=== PATIENT | female | born 1930 | race Caucasian/White ===

== ENCOUNTER 2016-04-15 10:48 | Inpatient (IN) | payer MEDICARE ==
[2016-04-15] MEDS ORDERED: SODIUM CHLORIDE 0.9% 1,000 ML IV STA ×2 (11:17)
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
[2016-04-15 12:23] LABS: Basophils % (A) 0 %; CH 30.4; Eosinophils # (A) 0.2 k/uL (0-0.7); Eosinophils % (A) 4 %; HCT 32.5 % (34.0-46.0); HDW 2.26; HGB 10.5 gm/dL (11.4-16.0); Luc # (Auto) 0.18; Luc % (Auto) 4; Lymphocytes # (A) 1.1 k/uL (1.0-4.8); Lymphocytes % (A) 23 %; MCH 30.8 pg (25.0-35.0); MCHC 32.3 g/dL (31.0-37.0); MCV 95.4 fL (80.0-100.0); Mean Platelet Volume 9.6; Monocytes # (A) 0.3 k/uL (0-1.0); Monocytes % (A) 5 %; Neutrophils # (A) 3.3 k/uL (1.3-7.7); Neutrophils % (A) 65 %; RBC 3.41 m/uL (3.80-5.40); RDW 14.2 % (11.5-15.5); WBC 5.1 k/uL (3.8-10.6); WBC (Perox) 5.07
[2016-04-15 12:34] LABS: Calcium 9.7 mg/dL (8.4-10.2); Phosphorous 3.8 mg/dL (2.5-4.5); Potassium 4.7 mmol/L (3.5-5.1); Total Bilirubin 0.5 mg/dL (0.2-1.3)
[2016-04-15 12:40] LABS: Prothrombin Time 10.4 sec (9.0-12.0)
--- NOTE | 2016-04-15 12:53 | XR ---
EXAMINATION TYPE: XR chest 2V DATE OF EXAM: 04/15/2016 12:34 PM COMPARISON: 01/13/2016 INDICATION: Weakness confusion TECHNIQUE: Single frontal view of the chest is obtained. FINDINGS: The heart size is normal. The pulmonary vasculature is normal. There is a 1.7 cm area of increased density and size which may some infiltrate surrounding underlying mass should be considered. Follow-up is recommended. Neoplasm is not excluded. Some left lower lobe infiltrate appears to be present. Correlate for atelectasis or pneumonia. No pneumothorax is evident. IMPRESSION: 1. Possible mass right upper lobe additional workup recommended. 2. Left lower lobe infiltrate. Correlate for atelectasis and pneumonia. 3. No acute posttraumatic change is identified.
--- NOTE | 2016-04-15 12:55 | XR ---
EXAMINATION TYPE: XR wrist complete RT DATE OF EXAM: 04/15/2016 12:34 PM COMPARISON: NONE HISTORY: Fall, pain TECHNIQUE: 4 views right wrist FINDINGS:Joint spaces preserved. Soft tissues are normal. There is some subtle irregularity at the lateral radial aspect of the distal radius. Some extension t owards the articular surface. Nondisplaced fracture is not excluded. This is best visualized on the o blique view and the navicular views. Follow-up study can be performed 7-10 days from acute trauma for continued pain. IMPRESSION: 1. Occult fracture of the lateral distal radius is not excluded. Correlate with location of the kevan ent's pain, follow up study could confirm suspected fracture.
[2016-04-15 12:56] LABS: Creatine Kinase 22 U/L (30-135)
[2016-04-15] MEDS ORDERED: LEVOFLOXACIN 750MG-D5W PMX 750 MG in DEXTROSE/WATER 1 150ML.BAG IVPB STA (12:59)
[2016-04-15] MEDS ORDERED: PNEUMONIA PROTOCOL UTILIZED 1 EACH MISC PO PRN (12:59)
[2016-04-15 13:09] LABS: Creatine Kinase MB 0.5 ng/mL (0.0-2.4); Troponin I <0.012 ng/mL (0.000-0.034)
--- NOTE | 2016-04-15 13:11 | XR ---
EXAMINATION TYPE: XR pelvis AP view DATE OF EXAM: 04/15/2016 12:34 PM COMPARISON: NONE HISTORY: Fall, pain TECHNIQUE: Single AP pelvis FINDINGS: Bilateral hip prostheses are present. No acute fractures are evident. Sacroiliac joints and symphysis pubis appear intact IMPRESSION: 1. No acute posttraumatic change AP pelvis
[2016-04-15 14:03] LABS: Appearance,Urine Clear (Clear); Bacteria,Urine Rare /hpf; Bilirubin,Urine Negative (Negative); Glucose,Urine (UA) Negative (Negative); Ketones,Urine Negative (Negative); Leukocyte Esterase,Urine Trace (Negative); Nitrite,Urine Positive (Negative); PH, Urine 6.5 (5.0-8.0); Particle Count 19897; Protein,Urine Negative (Negative); RBC,Urine <1 /hpf (0-5); Specific Gravity,Urine 1.007 (1.001-1.035); UA Billing (MACRO vs. MICRO) MICRO; Urobilinogen,Urine <2.0 mg/dL (<2.0); WBC,Urine 1 /hpf (0-5)
[2016-04-15] MEDS: SODIUM CHLORIDE 0.9% 1,000 ML IV SCH (14:11)
[2016-04-15 15:48] VITALS: BMI 30.6
[2016-04-15] MEDS: IPRATROPIUM-ALBUTEROL 3 ML NEB INHALATION SCH ×2 (16:08→19:40)
--- NOTE | 2016-04-15 17:01 | HP ---
DATE OF ADMISSION: 04/15/2016 CHIEF COMPLAINT: Fall and change in mental status as well as shaking chills. HISTORY OF PRESENT ILLNESS: This 85-year-old woman with a past medical history of COPD, GERD, DJD, history of pneumonia, history of adenoidectomy, history of breast surgery, cholecystectomy, history of orthopedic surgery, being followed by Dr. Orozco in the outpatient setting, was apparently living by herself. This morning the patient went to the bathroom and had a fall. The family checked on the patient and she was noted to have shaking chills and some change in mental status. Patient was taken to [facility]. Right upper lobe pneumonia was suspected. Patient was admitted for further evaluation and treatment. There is no history of any rigor no history of headache, loss of consciousness, seizures. Influenza is negative. PAST MEDICAL HISTORY: 1. History of COPD. 2. History of GERD. 3. History of DJD. 4. History of pneumonia. 5. History of osteoporosis. 6. History of adenoidectomy. 7. Breast surgery. 8. Cholecystectomy. Medications prior to admission include: 1. DuoNeb q.i.d. and p.r.n. 2. Albuterol HFA 1 to 2 puffs q.6 p.r.n. 3. Reglan 10 mg before meals b.i.d. 4. Clyde 7.5 p.o. t.i.d. 5. Neurontin 300 mg p.o. t.i.d. 6. Multivitamin 1 p.o. daily. 7. Singulair 10 mg p.o. b.i.d. 8. Vitamin D3 1000 daily. 9. Lioresal 10 mg p.o. t.i.d. 10. Atenolol 25 mg p.o. daily. 11. Vitamin C 500 mg p.o. daily. 12. Evista 60 mg at bedtime. 13. Prilosec 20 mg p.o. daily. ALLERGIES: NONE. FAMILY HISTORY: History of myocardial infarction. SOCIAL HISTORY: Previous history of smoking. No current smoking or alcohol intake. REVIEW OF SYSTEMS: ENT: Diminished hearing. Diminished vision. CARDIOVASCULAR SYSTEM: As mentioned earlier. RESPIRATORY SYSTEM: As mentioned earlier. GI: No nausea, vomiting. : No dysuria, retention. NERVOUS SYSTEM: No numbness, weakness. ALLERGY/IMMUNOLOGY: No asthma or hayfever. MUSCULOSKELETAL: As mentioned earlier. HEMATOLOGY/ONCOLOGY: No history of anemia. ENDOCRINE: No history of diabetes, hypothyroidism. CONSTITUTIONAL: As mentioned earlier. DERMATOLOGY: Negative. RHEUMATOLOGY: Negative. PSYCHIATRY: As mentioned earlier. PHYSICAL EXAMINATION: Patient is alert and oriented x3. Pulse is 66, blood pressure 139/72, respiration 16, temperature 96.9, pulse ox 95% on room air. HEENT: Conjunctivae normal. NECK: No jugular venous distention. CARDIOVASCULAR: S1, S2 muffled. RESPIRATORY SYSTEM: Breath sounds diminished at the bases. A few scattered rhonchi and crackles. ABDOMEN: Soft, nontender. No mass palpable. LEGS: No edema. No swelling. NERVOUS SYSTEM: Higher functions as mentioned earlier. Moves all 4 limbs. No focal motor or sensory deficit. LYMPHATICS: No lymph node palpable in neck, axilla or groin. SKIN: No ulcer, rash or bleeding. LABS: WBC 5.5, hemoglobin 10.5. Creatinine is 1.27. ASSESSMENT: 1. Right upper lobe pneumonia with possible sepsis, present on admission. 2. Change in mental status, metabolic encephalopathy secondary to sepsis. 3. Chronic obstructive pulmonary disease, acute exacerbation. 4. Mild acute renal failure, possibly secondary to dehydration. 5. Anemia, normocytic; anemia of chronic disease. 6. History of chronic obstructive pulmonary disease. 7. History of gastroesophageal reflux disease. 8. History of degenerative joint disease. 9. History of pneumonia. 10. History of peripheral neuropathy. 11. History of hiatal hernia. 12. History of frequent urinary tract infections. 13. Chronic kidney disease, stage III. 14. Multiple lung nodules previously. 15. Degenerative joint disease. 16. History of adenoidectomy. 17. Multiple lung nodules, possibly pneumonic; metastatic process unlikely per Pulmonary. 18. Chronic hypoxic respiratory failure, on home oxygen. 19. Right wrist contusion. 20. FULL CODE. RECOMMENDATIONS AND DISCUSSION: In this 85-year-old woman who presented with multiple complex medical issues, we will monitor the patient closely, continue the current medications, continue symptomatic treatment. Will initiate empiric antibiotics, follow the cultures. UA appears to be unremarkable; however, we will follow the culture. The wrist x-ray showed occult fracture of the lateral distal radius is not excluded. Also recommend an orthopedic consultation. Otherwise, guarded prognosis because of multiple complex medical issues. Further recommendations will follow. See orders for further details. Bronchodilators. DVT prophylaxis. Discussed with the family, who understands and agrees. A copy of this dictation is being forwarded to Dr. Orozco, who is the primary physician. YEE
[2016-04-15] MEDS: HYDROcodone/APAP 7.5-325MG 1 EACH TAB PO SCH ×2 (17:13→21:24)
[2016-04-15] MEDS: GABAPENTIN 300 MG CAP PO SCH ×2 (17:14→21:22)
[2016-04-15] MEDS: METOCLOPRAMIDE 10 MG TAB PO SCH (17:15)
[2016-04-15] MEDS ORDERED: IPRATROPIUM-ALBUTEROL 3 ML NEB INHALATION SCH (20:00)
--- NOTE | 2016-04-15 20:31 | CT ---
EXAMINATION TYPE: CT chest wo con DATE OF EXAM: 04/15/2016 8:11 PM COMPARISON: 01/11/2016 HISTORY: PT STATES OF SOB. R/O ANY LUNG NODULES. CT DLP: 328.3 mGycm Automated exposure control for dose reduction was used. FINDINGS: Multiple axial sections were obtained from the thoracic inlet to the diaphragm with no contrast. There is a lobulated 4 x 2 cm masslike density in the subpleural posterior right lung in the posterio r segment of the right upper lobe and adjacent to the major fissure. There is coarsening of pulmonary interstitial markings. There is some pleural thickening at the right lung base. Heart is enlarged. T horacic aorta is atheromatous. There is no evidence of aortic aneurysm. There are no hilar masses. Th ere is no mediastinal adenopathy. There is no pericardial effusion. There is osteopenia and multiple compression fractures in the thoracic spine. IMPRESSION: THERE IS A MASSLIKE DENSITY IN THE RIGHT UPPER LOBE POSTERIOR SEGMENT THAT IS INCREASED COMPARED TO L AST CT SCAN AND IS SUSPICIOUS FOR TUMOR. THERE IS SLIGHT INCREASED PLEURAL THICKENING AND SOME PLEURAL INFILTRATE AT THE RIGHT LUNG BASE LUCRETIA RED TO LAST EXAM. CARDIOMEGALY. ATHEROSCLEROTIC VASCULAR DISEASE. NUMEROUS THORACIC COMPRESSION FRACT URES WITHOUT CHANGE. SMALL HIATAL HERNIA.
[2016-04-15] MEDS ORDERED: LEVOFLOXACIN 750MG-D5W PMX 750 MG in DEXTROSE/WATER 1 150ML.BAG IVPB SCH (21:00)
[2016-04-15] MEDS: BACLOFEN 10 MG TAB PO SCH (21:21)
[2016-04-15] MEDS: RALOXIFENE 60 MG TAB PO SCH (21:21)
[2016-04-16] MEDS: SODIUM CHLORIDE 0.9% 1,000 ML IV SCH ×2 (03:05→17:23)
--- NOTE | 2016-04-16 07:32 | XR ---
EXAMINATION TYPE: XR chest 2V DATE OF EXAM: 04/16/2016 7:27 AM COMPARISON: 04/15/2016 TECHNIQUE: PA and lateral views submitted. HISTORY: Cough, pneumonia FINDINGS: There is a mass in the right upper lobe. There are compression deformities involving the thoracic spi ne which could be pathologic. Underlying COPD noted. Right-sided pleural effusion or thickening noted . No pneumothorax. Underlying interstitial fibrosis noted. IMPRESSION: 1. Right upper lobe mass
[2016-04-16] MEDS: IPRATROPIUM-ALBUTEROL 3 ML NEB INHALATION SCH ×4 (07:46→20:01)
[2016-04-16 08:13] LABS: Basophils % (A) 1 %; CH 30.5; CHCM 31.3; Eosinophils # (A) 0.2 k/uL (0-0.7); Eosinophils % (A) 3 %; HCT 33.5 % (34.0-46.0); HGB 10.4 gm/dL (11.4-16.0); Luc # (Auto) 0.18; Luc % (Auto) 3; Lymphocytes # (A) 1.2 k/uL (1.0-4.8); Lymphocytes % (A) 22 %; MCH 30.4 pg (25.0-35.0); MCHC 31.1 g/dL (31.0-37.0); MCV 97.9 fL (80.0-100.0); Mean Platelet Volume 9.9; Monocytes # (A) 0.3 k/uL (0-1.0); Monocytes % (A) 5 %; Neutrophils # (A) 3.6 k/uL (1.3-7.7); Neutrophils % (A) 66 %; RBC 3.42 m/uL (3.80-5.40); RDW 14.3 % (11.5-15.5); WBC 5.5 k/uL (3.8-10.6); WBC (Perox) 5.63
[2016-04-16 08:21] LABS: Calcium 9.1 mg/dL (8.4-10.2); Potassium 4.3 mmol/L (3.5-5.1)
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
[2016-04-16] MEDS: PANTOPRAZOLE 40 MG TABLET PO SCH (08:55)
[2016-04-16] MEDS: METOCLOPRAMIDE 10 MG TAB PO SCH ×2 (08:55→17:48)
[2016-04-16] MEDS: ENOXAPARIN 30 MG/0.3 ML SYRINGE SQ SCH (08:56)
[2016-04-16] MEDS: ATENOLOL 25 MG TAB PO SCH (08:56)
[2016-04-16] MEDS: BACLOFEN 10 MG TAB PO SCH ×2 (08:56→15:33)
[2016-04-16] MEDS: GABAPENTIN 300 MG CAP PO SCH ×3 (08:56→22:24)
[2016-04-16] MEDS: MONTELUKAST 10 MG TAB PO SCH (08:56)
[2016-04-16] MEDS: HYDROcodone/APAP 7.5-325MG 1 EACH TAB PO SCH ×3 (08:58→22:25)
[2016-04-16] MEDS ORDERED: ENOXAPARIN 40 MG/0.4 ML SYRINGE SQ SCH (09:00)
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
[2016-04-16] MEDS ORDERED: LEVOFLOXACIN 750MG-D5W PMX 750 MG in DEXTROSE/WATER 1 150ML.BAG IVPB SCH (12:00)
[2016-04-16] MEDS: CHOLECALCIFEROL 1,000 UNIT TAB PO SCH (12:25)
[2016-04-16] MEDS: ASCORBIC ACID 500 MG TAB PO SCH (12:25)
[2016-04-16] MEDS: MULTIVITAMINS, THERA 1 EACH TAB PO SCH (12:25)
--- NOTE | 2016-04-16 14:19 | XR ---
EXAMINATION TYPE: XR Hip Complete RT DATE OF EXAM: 04/16/2016 2:09 PM COMPARISON: AP pelvis 09/30/2014 HISTORY: Pain post fall TECHNIQUE: 2 views are submitted Findings: There is hip prostheses which appears to be maintained. Soft tissue ossification is noted. There is a large portion of the greater trochanter which appears separate from the prostheses. This a ppears stable from a pelvic x-ray of 2014. IMPRESSION: 1. Postoperative change with soft tissue ossification and bony displacement which is stable from the previous exam.
--- NOTE | 2016-04-16 15:55 | P.PN ---
Subjective Date of service 04/16/2016. Personal being dictated for Dr. Tang. Interval history: This is a 85-year-old female admitted with right upper lobe pneumonia, possible sepsis, acute exacerbation of COPD, mild acute renal failure secondary to dehydration, status post fall with possible right wrist fracture and multiple other medical issues. Maintained on nebulized bronchodilators, antibiotics with breathing improving. Wrist/hand x-ray reporting possible right wrist fracture; Evaluated by orthopedics with recommendations noted including a wrist brace. Chest CT reporting masslike density in the right upper lobe posterior segment increased compared to previous computed tomography scan, suspicious for tumor. Slight increased pleural thickening and pleural infiltrate at the right lung base compared to previous exam, cardiomegaly, arteriosclerotic vascular disease, numerous thoracic compression fractures without change. Chest x-ray reporting right upper lobe mass, thoracic spine compression deformities, COPD, right-sided pleural effusion, underlying interstitial fibrosis, no pneumothorax. Pulmonary consult in place with recommendations pending. Preliminary urine culture in progress, afebrile, normal WBC. Diet intake improving, no nausea, vomiting or diarrhea. Renal function improving. Denies chest pain, palpitations or increasing shortness of breath. Ambulating with walker, tolerating increase in exertion well. Review of systems: HEENT: Denies headache or focal deficits. Denies any dizziness or lightheadedness. Respiratory: Denies any increased shortness of breath. Cardiac: Denies any chest pain, palpitations. GI: Denies any nausea, vomiting, or diarrhea. Denies any abdominal tenderness. : Denies any dysuria. Psychiatry: Denies any anxiety or depression. Active Medications Acetaminophen/Hydrocodone Bitart ([place] 7.5-325) 1 each PO TID [facility] Last Admin: 04/16/16 08:58 Dose: 1 each Albuterol/Ipratropium (Duoneb 0.5 Mg-3 Mg/3 Ml Soln) 3 ml INHALATION RT-QID [facility] Last Admin: 04/16/16 11:53 Dose: 3 ml Ascorbic Acid (Vitamin C) 500 mg PO 1200 [facility] Last Admin: 04/16/16 12:25 Dose: 500 mg Atenolol (Tenormin) 25 mg PO DAILY [facility] Last Admin: 04/16/16 08:56 Dose: 25 mg Baclofen (Lioresal) 10 mg PO TID [facility] Last Admin: 04/16/16 08:56 Dose: 10 mg Cholecalciferol (Vitamin D3) 1,000 unit PO 1200 [facility] Last Admin: 04/16/16 12:25 Dose: 1,000 unit Enoxaparin Sodium (Lovenox) 30 mg SQ DAILY [facility] Last Admin: 04/16/16 08:56 Dose: 30 mg Fluticasone Propionate (Flonase Nasal [place]) 1 spray EA NOSTRIL DAILY PRN PRN Reason: Allergy Symptoms Gabapentin (Neurontin) 300 mg PO TID [facility] Last Admin: 04/16/16 08:56 Dose: 300 mg Sodium Chloride (Saline 0.9%) 1,000 mls @ 20 mls/hr IV .Q24H [facility] Last Admin: 04/16/16 03:05 Dose: 100 mls/hr Levofloxacin 750 mg/ IV (Solution) 150 mls @ 100 mls/hr IVPB Q48H [facility] Stop: 04/28/16 21:01 Metoclopramide HCl (Reglan) 10 mg PO AC-BID [facility] Last Admin: 04/16/16 08:55 Dose: 10 mg Miscellaneous Information (Pneumonia Protocol Utilized) 1 each PO ONCE PRN PRN Reason: Per Protocol Montelukast Sodium (Singulair) 10 mg PO DAILY [facility] Last Admin: 04/16/16 08:56 Dose: 10 mg Multivitamins (Theragran) 1 each PO 1200 [facility] Last Admin: 04/16/16 12:25 Dose: 1 each Pantoprazole Sodium (Protonix) 40 mg PO AC-BRKFST [facility] Last Admin: 04/16/16 08:55 Dose: 40 mg Raloxifene HCl (Evista) 60 mg PO HS [facility] Last Admin: 04/15/16 21:21 Dose: 60 mg Objective - Vital Signs Vital signs: Vital Signs Temp 97.1 F L 04/16/16 07:00 Pulse 78 04/16/16 12:01 Resp 16 04/16/16 07:00 BP 148/79 04/16/16 07:00 Pulse Ox 92 L 04/16/16 07:00 Intake & Output 04/15/16 04/16/16 04/16/16 18:59 06:59 18:59 Intake Total 800 Balance 800 Weight 77.111 kg Intake: IV 800 Sodium Chloride 0.9% 1, 800 000 ml @ 20 mls/hr IV . Q24H [facility] Rx#:[id number] Other: Voiding Method Toilet Bedside Commode Bedside Commode Bedside Commode Incontinent Incontinent Incontinent # Voids 3 3 # Bowel Movements 1 - Exam PHYSICAL EXAM: VITAL SIGNS: As above GENERAL: [Sitting up in bed, no acute distress] HEENT: [Pupils equal conjunctiva normal.] NECK: [Supple, no JVD] RESPIRATORY EFFORT:[Normal] LUNGS: [Diminished, scattered rhonchi throughout, no crackles, no wheezing] CARDIOVASCULAR[regular S1 and S2, no edema] GI: [Abdomen soft, nontender, positive bowel sounds. No guarding, no rigidity] PSYCH: [Alert and oriented -3, mood and affect normal.] NEURO: No focal deficits, moves all 4 extremities, strength and sensation grossly intact - Labs CBC & Chem 7: 04/16/16 07:39 04/16/16 07:39 Labs: Abnormal Lab Results - Last 24 Hours (Table) 04/16/16 04/16/16 Range/Units 07:39 07:39 RBC 3.42 L (3.80-5.40) m/uL Hgb 10.4 L (11.4-16.0) gm/dL Hct 33.5 L (34.0-46.0) % Chloride 110 H (98-107) mmol/L BUN 19 H (7-17) mg/dL Creatinine 1.15 H (0.52-1.04) mg/dL Microbiology - Last 24 Hours (Table) 04/15/16 13:25 Urine Culture - Preliminary Urine,Catheterized Assessment and Plan Plan: 1. [Right upper lobe pneumonia, possible sepsis present on admission]. 2. [Right upper lobe mass, suspicious for tumor, right basilar infiltrate, numerous thoracic compression fractures without change per CT. 3. [Cardiomegaly, arteriosclerotic vascular disease per CT]. 4. [Change in mental status, Acute metabolic encephalopathy secondary to sepsis] . 5. [Acute exacerbation COPD in a patient with history of COPD]. 6. [Mild acute on chronic renal failure, stage III, possibly secondary to dehydration, improving]. 7. [Anemia, normocytic,of chronic disease]. 8. Gastroesophageal reflux disease 9. Degenerative joint disease, gait dysfunction, ambulates with walker 10. History of pneumonia 11. Peripheral neuropathy 12. Hiatal hernia 13. History of frequent UTIs 14. History of Multiple lung nodules, possibly pneumonic; metastatic process unlikely per prior pulmonary evaluation. 15. Chronic hypoxic respiratory failure on home O2 16. Right wrist contusion, possible fracture Plan: Continue on current medication regime, nebulized bronchodilators, empiric antibiotics, monitoring and symptomatic treatment. Increase ambulation as tolerated. Pulmonary consult in place with recommendations pending. Previously had UTI with E. coli, preliminary urinary culture pending, follow cultures closely. Close monitoring of renal function with repeat labs ordered for a.m. Further recommendations to follow. The impression and plan of care has been dictated as directed. : I performed a H&P examination of this patient and discussed the same with the dictator. I agree with the dictator's note. Any additional findings/opinions/ etc. will be noted.
[2016-04-16] MEDS ORDERED: AMPICILLIN-SULBACTAM 3 GM in SODIUM CHLORIDE 0.9% 100 ML IVPB SCH (16:00)
--- NOTE | 2016-04-16 20:42 | PN ---
DATE OF SERVICE: 04/16/2016 This 85-year-old woman who was admitted with right upper lobe pneumonia also had some change in mental status. Seen and evaluated the patient along with the nurse practitioner. Creatinine is 1.15. Continue with antibiotics. Influenza is negative. See orders for further details. Prognosis guarded. PT and OT evaluation. Further recommendations to follow.
[2016-04-16] MEDS: LEVOFLOXACIN 750MG-D5W PMX 750 MG in DEXTROSE/WATER 1 150ML.BAG IVPB SCH (22:23)
[2016-04-16] MEDS: RALOXIFENE 60 MG TAB PO SCH (22:24)
[2016-04-17] MEDS: IPRATROPIUM-ALBUTEROL 3 ML NEB INHALATION SCH ×4 (07:34→20:31)
[2016-04-17 08:36] LABS: Basophils % (A) 0 %; CH 29.8; CHCM 31.2; Eosinophils # (A) 0.1 k/uL (0-0.7); Eosinophils % (A) 2 %; HCT 30.5 % (34.0-46.0); HDW 2.14; HGB 9.7 gm/dL (11.4-16.0); Luc # (Auto) 0.19; Luc % (Auto) 4; Lymphocytes # (A) 1.2 k/uL (1.0-4.8); Lymphocytes % (A) 24 %; MCH 30.4 pg (25.0-35.0); MCHC 31.7 g/dL (31.0-37.0); MCV 95.8 fL (80.0-100.0); Mean Platelet Volume 8.4; Monocytes # (A) 0.2 k/uL (0-1.0); Monocytes % (A) 5 %; Neutrophils # (A) 3.2 k/uL (1.3-7.7); Neutrophils % (A) 65 %; RBC 3.18 m/uL (3.80-5.40); RDW 14.2 % (11.5-15.5); WBC 4.9 k/uL (3.8-10.6); WBC (Perox) 5.34
[2016-04-17] MEDS: METOCLOPRAMIDE 10 MG TAB PO SCH ×2 (08:36→17:19)
[2016-04-17] MEDS: ATENOLOL 25 MG TAB PO SCH (08:36)
[2016-04-17] MEDS: ENOXAPARIN 30 MG/0.3 ML SYRINGE SQ SCH (08:36)
[2016-04-17] MEDS: PANTOPRAZOLE 40 MG TABLET PO SCH (08:36)
[2016-04-17] MEDS: BACLOFEN 10 MG TAB PO SCH ×3 (08:36→20:01)
[2016-04-17] MEDS: GABAPENTIN 300 MG CAP PO SCH ×3 (08:37→20:02)
[2016-04-17] MEDS: HYDROcodone/APAP 7.5-325MG 1 EACH TAB PO SCH ×3 (08:37→20:02)
[2016-04-17] MEDS: MONTELUKAST 10 MG TAB PO SCH (08:37)
[2016-04-17 08:39] LABS: Calcium 9.2 mg/dL (8.4-10.2); Potassium 4.4 mmol/L (3.5-5.1)
[2016-04-17] MEDS: FLUTICASONE 50MCG/SPRAY NASAL 16GM EA NOSTRIL PRN ×2 (09:18→20:15)
[2016-04-17] MEDS: CHOLECALCIFEROL 1,000 UNIT TAB PO SCH (12:34)
[2016-04-17] MEDS: ASCORBIC ACID 500 MG TAB PO SCH (12:34)
[2016-04-17] MEDS: MULTIVITAMINS, THERA 1 EACH TAB PO SCH (12:34)
--- NOTE | 2016-04-17 14:11 | P.PN ---
Subjective This is an 85-year-old female who has a history of left-sided breast cancer status post lumpectomy and radiation in 1995, gastroesophageal reflux disease, osteoarthritis, chronic kidney disease stage III. She also has a history of chronic obstructive pulmonary disease and is followed in our office by Dr. Baires. She has a history of smoking but quit in 2010. She presented to the emergency room with complaints of weakness and falling. She also had mental status changes. She does not have any shortness of breath. Apparently she has problems with recurrent urinary tract infections and sometimes she becomes lightheaded and will fall when she has a bladder infection. She is taking all her medications. Denies any fever chills. Denies any cough. No coughing up of blood. No wheezing. No shortness of breath. No chest pain per se. Influenza screen was negative. Urinalysis is positive nitrates. Computed tomography scan of the chest revealed a masslike density in the right upper lobe posterior segment that is increased compared to last CT in December 2015. She is seen again today 04/17/2016 in follow-up on the regular medical floor. She is sitting up in the chair at the bedside. She is awake and alert in no acute distress. She is oriented 3. She denies any worsening shortness of breath, cough or congestion. She is maintaining good O2 saturations in the mid 90s on room air. No chills or night sweats. She is afebrile. No leukocytosis. Her urine culture is positive for gram-negative bacilli. Blood culture reveals no growth to date. Objective - Vital Signs Vital signs: Vital Signs Temp 98.1 F 04/17/16 07:00 Pulse 86 04/17/16 07:54 Resp 20 04/17/16 07:00 BP 147/65 04/17/16 07:00 Pulse Ox 93 L 04/17/16 07:00 Intake & Output 04/16/16 04/17/16 04/17/16 18:59 06:59 18:59 Intake Total 850 Balance 850 Intake: IV 160 Sodium Chloride 0.9% 1, 160 000 ml @ 20 mls/hr IV . Q24H [facility] Rx#:[id number] Oral 690 Other: Voiding Method Bedside Commode Bedside Commode Bedside Commode Incontinent Incontinent Incontinent # Voids 3 2 # Bowel Movements 1 - Exam GENERAL EXAM: Alert, active, comfortable in no apparent distress. HEAD: Normocephalic. EYES: Normal reaction of pupils, equal size. NOSE: Clear with pink turbinates. THROAT: No erythema or exudates. NECK: No masses, no JVD. CHEST: No chest wall deformity. LUNGS: Equal air entry with no crackles, wheeze, rhonchi or dullness. CVS: S1 and S2 normal with no audible murmurs, regular rhythm. ABDOMEN: No hepatosplenomegaly, normal bowel sounds, no guarding or rigidity. Extremities: There is trace peripheral edema. No clubbing, no cyanosis. Peripheral pulses are intact. - Labs CBC & Chem 7: 04/17/16 07:41 04/17/16 07:41 Labs: Abnormal Lab Results - Last 24 Hours (Table) 04/17/16 04/17/16 Range/Units 07:41 07:41 RBC 3.18 L (3.80-5.40) m/uL Hgb 9.7 L (11.4-16.0) gm/dL Hct 30.5 L (34.0-46.0) % Chloride 109 H (98-107) mmol/L Creatinine 1.25 H (0.52-1.04) mg/dL Glucose 105 H (74-99) mg/dL Microbiology - Last 24 Hours (Table) 04/15/16 13:25 Urine Culture - Preliminary Urine,Catheterized Gram Neg Bacilli 04/15/16 13:51 Blood Culture - Preliminary Blood No Growth after 24 hours Assessment and Plan Plan: Impression: #1 Dizziness and falls secondary to weakness from urinary tract infection. #2 Urinary tract infection secondary to gram-negative bacilli. #3 Chronic anemia. #4 Right upper lobe pulmonary infarction or pulmonary mass versus infiltrate. This may represent a pulmonary infarction, Cerda's hump or possibly necrotizing anaerobic infection. #5 Osteoporosis. #6 History of left breast cancer with lumpectomy and radiation 1995. Plan: The patient was seen and evaluated by Dr. Pompa. She has no pulmonary complaints. We could follow-up her right upper lobe mass in the outpatient setting. In the interim, we'll continue with her bronchodilators, Singulair. She remains on antibiotics in the form of Levaquin. She is on Protonix for GI prophylaxis. Lovenox for GI prophylaxis. We will increase her activity as tolerated. We'll continue to follow make further recommendations based on her clinical status.
[2016-04-17] MEDS: SODIUM CHLORIDE 0.9% 1,000 ML IV SCH (18:10)
[2016-04-17] MEDS: RALOXIFENE 60 MG TAB PO SCH (20:01)
--- NOTE | 2016-04-17 20:46 | PN ---
DATE OF SERVICE: 04/17/2016 This 85-year-old woman who was admitted with right upper lobe pneumonia also had Gram-negative bacilli grown from the urine culture. No chest pain. No palpitation. No fever. The patient is feeling much better. On exam, alert and oriented x2. Pulse 77, blood pressure 161/68, respiration 20, temperature 98.1, pulse ox 94% on room air. HEENT: Conjunctivae normal. NECK: No jugular venous distention. CARDIOVASCULAR SYSTEM: S1, S2 muffled. RESPIRATORY: Breath sounds diminished at the bases. A few scattered rhonchi. No crackles. ABDOMEN: Soft, non-tender. LEGS: No edema. No swelling. NERVOUS SYSTEM: No focal deficit. LABS: Hemoglobin 9.7. Creatinine is 1.25. ASSESSMENT: 1. Right upper lobe pneumonia with possible sepsis, present on admission. 2. Right upper lobe mass lesion, suspicious tumor, right basilar infiltrate, numerous thoracic compression fractures without changes per CT scan. 3. Cardiomegaly, arteriosclerotic vascular disease per CT scan. 4. Change in mental status, acute metabolic encephalopathy secondary to sepsis, present on admission. 5. Chronic obstructive pulmonary disease, acute exacerbation. 6. Mild acute on chronic renal failure. 7. Chronic renal failure, stage III, possibly secondary to dehydration, improving. 8. Anemia, normocytic; anemia of chronic disease. 9. Gastroesophageal reflux disease. 10. Degenerative joint disease and gait dysfunction. 11. History of pneumonia. 12. Peripheral neuropathy. 13. Hiatal hernia. 14. History of frequent urinary tract infections. 15. History of multiple lung nodules, possible pneumonia, possible malignancy. 16. Chronic hypoxic respiratory failure, on home oxygen. 17. Right wrist contusion, possible fracture. 18. FULL CODE. RECOMMENDATIONS AND DISCUSSION: Recommend to continue current medications, continue the monitoring, continue symptomatic treatment. Otherwise, continue with the bronchodilators. Continue with antibiotics. Orthopedic recommended follow-up x-rays. Otherwise, Dr. Pompa's input noted. The prognosis is guarded because of multiple complex medical issues. Further recommendations to follow.
[2016-04-18] MEDS: SODIUM CHLORIDE 0.9% 1,000 ML IV SCH (03:10)
[2016-04-18 07:32] LABS: Aty Lym Flag Slight; CH 29.6; CHCM 30.6; HCT 27.9 % (34.0-46.0); HDW 2.08; HGB 8.7 gm/dL (11.4-16.0); Hypochromasia Slight; MCH 30.2 pg (25.0-35.0); MCHC 31.1 g/dL (31.0-37.0); MCV 97.2 fL (80.0-100.0); Mean Platelet Volume 8.8; RBC 2.87 m/uL (3.80-5.40); RDW 14.3 % (11.5-15.5); WBC 4.4 k/uL (3.8-10.6); WBC (Perox) 4.61
[2016-04-18 07:35] LABS: Calcium 8.8 mg/dL (8.4-10.2); Potassium 4.3 mmol/L (3.5-5.1)
[2016-04-18] MEDS: ATENOLOL 25 MG TAB PO SCH (07:41)
[2016-04-18] MEDS: BACLOFEN 10 MG TAB PO SCH ×3 (07:41→21:42)
[2016-04-18] MEDS: PANTOPRAZOLE 40 MG TABLET PO SCH (07:41)
[2016-04-18] MEDS: METOCLOPRAMIDE 10 MG TAB PO SCH ×2 (07:41→16:16)
[2016-04-18] MEDS: HYDROcodone/APAP 7.5-325MG 1 EACH TAB PO SCH ×3 (07:41→21:42)
[2016-04-18] MEDS: IPRATROPIUM-ALBUTEROL 3 ML NEB INHALATION SCH ×4 (07:42→19:10)
[2016-04-18] MEDS: ENOXAPARIN 30 MG/0.3 ML SYRINGE SQ SCH (07:44)
[2016-04-18] MEDS: MONTELUKAST 10 MG TAB PO SCH (07:45)
[2016-04-18] MEDS: GABAPENTIN 300 MG CAP PO SCH ×3 (07:45→21:42)
[2016-04-18 08:34] LABS: Add Differential Manual Differential
[2016-04-18 08:35] LABS: Nucleated Red Blood Cells 0 /100 WBC (0-0); Total Cells Counted 100
[2016-04-18 08:36] LABS: Manual Review Performed
[2016-04-18] MEDS: FLUTICASONE 50MCG/SPRAY NASAL 16GM EA NOSTRIL PRN (12:16)
[2016-04-18] MEDS: MULTIVITAMINS, THERA 1 EACH TAB PO SCH (12:17)
[2016-04-18] MEDS: CHOLECALCIFEROL 1,000 UNIT TAB PO SCH (12:17)
[2016-04-18] MEDS: ASCORBIC ACID 500 MG TAB PO SCH (12:17)
--- NOTE | 2016-04-18 13:03 | P.PN ---
Subjective This is an 85-year-old female who has a history of left-sided breast cancer status post lumpectomy and radiation in 1995, gastroesophageal reflux disease, osteoarthritis, chronic kidney disease stage III. She also has a history of chronic obstructive pulmonary disease and is followed in our office by Dr. Baires. She has a history of smoking but quit in 2010. She presented to the emergency room with complaints of weakness and falling. She also had mental status changes. She does not have any shortness of breath. Apparently she has problems with recurrent urinary tract infections and sometimes she becomes lightheaded and will fall when she has a bladder infection. She is taking all her medications. Denies any fever chills. Denies any cough. No coughing up of blood. No wheezing. No shortness of breath. No chest pain per se. Influenza screen was negative. Urinalysis is positive nitrates. Computed tomography scan of the chest revealed a masslike density in the right upper lobe posterior segment that is increased compared to last CT in December 2015. She is seen again today 04/17/2016 in follow-up on the regular medical floor. She is sitting up in the chair at the bedside. She is awake and alert in no acute distress. She is oriented 3. She denies any worsening shortness of breath, cough or congestion. She is maintaining good O2 saturations in the mid 90s on room air. No chills or night sweats. She is afebrile. No leukocytosis. Her urine culture is positive for gram-negative bacilli. Blood culture reveals no growth to date. The patient is seen again today 04/18/2016 in follow-up. She is awake and alert in no acute distress. She denies any worsening shortness of breath, cough or congestion. The plan is for possible discharge to an extended care facility for further inpatient rehabilitation. Objective - Vital Signs Vital signs: Vital Signs Temp 97.9 F 04/18/16 07:00 Pulse 82 04/18/16 11:45 Resp 16 04/18/16 07:52 BP 161/71 04/18/16 07:00 Pulse Ox 92 L 04/18/16 07:00 Intake & Output 04/17/16 04/18/16 04/18/16 18:59 06:59 18:59 Intake Total 400 1310 Balance 400 1310 Weight 77.111 kg 77.111 kg Intake: IV 160 Sodium Chloride 0.9% 1, 160 000 ml @ 20 mls/hr IV . Q24H REBEKA Rx#:[id number] Intake, IV Titration 80 Amount Sodium Chloride 0.9% 1, 80 000 ml @ 20 mls/hr IV . Q24H REBEKA Rx#:[id number] Oral 400 1070 Other: Voiding Method Bedside Commode Bedside Commode Bedside Commode Incontinent Incontinent Incontinent # Voids 3 1 1 # Bowel Movements 1 - Exam GENERAL EXAM: Alert, active, comfortable in no apparent distress. HEAD: Normocephalic. EYES: Normal reaction of pupils, equal size. NOSE: Clear with pink turbinates. THROAT: No erythema or exudates. NECK: No masses, no JVD. CHEST: No chest wall deformity. LUNGS: Equal air entry with no crackles, wheeze, rhonchi or dullness. CVS: S1 and S2 normal with no audible murmurs, regular rhythm. ABDOMEN: No hepatosplenomegaly, normal bowel sounds, no guarding or rigidity. Extremities: There is trace peripheral edema. No clubbing, no cyanosis. Peripheral pulses are intact. - Labs CBC & Chem 7: 04/18/16 06:46 04/18/16 06:46 Labs: Abnormal Lab Results - Last 24 Hours (Table) 04/18/16 04/18/16 Range/Units 06:46 06:46 RBC 2.87 L (3.80-5.40) m/uL Hgb 8.7 L (11.4-16.0) gm/dL Hct 27.9 L (34.0-46.0) % Plt Count 134 L (150-450) k/uL Chloride 109 H (98-107) mmol/L BUN 19 H (7-17) mg/dL Creatinine 1.32 H (0.52-1.04) mg/dL Microbiology - Last 24 Hours (Table) 04/15/16 13:25 Urine Culture - Final Urine,Catheterized Escherichia coli 04/15/16 13:51 Blood Culture - Preliminary Blood No Growth after 48 hours Assessment and Plan Plan: Impression: #1 Dizziness and falls secondary to weakness from urinary tract infection. #2 Urinary tract infection secondary to E. coli. #3 Chronic anemia. #4 Right upper lobe pulmonary infarction or pulmonary mass versus infiltrate. This may represent a pulmonary infarction, Cerda's hump or possibly necrotizing anaerobic infection. #5 Osteoporosis. #6 History of left breast cancer with lumpectomy and radiation 1995. Plan: The patient was seen and evaluated by Dr. Pompa. She has no pulmonary complaints. We will see her on as-needed basis now. We could follow-up her right upper lobe mass in the outpatient setting. In the interim, we'll continue with her bronchodilators, Singulair. She remains on antibiotics in the form of Levaquin. She is on Protonix for GI prophylaxis. Lovenox for GI prophylaxis.
--- NOTE | 2016-04-18 20:08 | PN ---
DATE OF SERVICE: 04/18/2016 This 85-year-old woman who was admitted with right upper lobe pneumonia with possible sepsis, also had E. coli growing from the urine. No chest pain. No palpitations. No fever. Patient is on IV Levaquin. PHYSICAL EXAMINATION: GENERAL: The patient is alert, oriented x3. VITAL SIGNS: Pulse 83, blood pressure 161/71, temperature 97.1, pulse ox 90 % on room air. RESPIRATORY: Breath sounds diminished at the bases. A few scattered rhonchi and crackles. ABDOMEN: Soft, nontender. EXTREMITIES: No edema. NERVOUS SYSTEM: Mild diffuse weakness. LYMPHATICS: No lymph nodes palpable in the neck, axillae, groin. LABS: WBC 4.3, hemoglobin 8.7, creatinine is 1.32. ASSESSMENT: 1. Right upper lobe pneumonia with possible sepsis, present on admission. 2. E. coli UTI. 3. Right upper lobe mass lesion suspicious with right base infiltrate. 4. Numerous thoracic compression fractures without changes in the CT scan. 5. Cardiomegaly. 6. Atherosclerotic vascular disease per CT scan. 7. Change in mental status, acute metabolic secondary to sepsis present on admission. 8. Chronic obstructive pulmonary disease acute exacerbation present on admission. 9. Mild acute on chronic renal failure, present on admission. 10. Chronic renal failure stage III, possibly secondary to dehydration, improving. 11. Anemia, normocytic, anemia of chronic disease. 12. Gastroesophageal reflux disease. 13. History of degenerative joint disease and gait dysfunction. 14. History of pneumonia. 15. History of peripheral neuropathy. 16. Hiatal hernia. 17. History of frequent urinary tract infections. 18. History of multiple lung nodules, possible pneumonia, possible malignancy. 19. Chronic hypoxic respiratory failure, on home oxygen via nasal cannula. 20. Right wrist contusion possible fracture. 21. FULL CODE. RECOMMENDATIONS: Recommend to continue with continue monitoring and symptomatic treatment. At this time I would recommend PT, OT evaluation and possible rehab. Continue the rest of the medications. Guarded prognosis because of multiple complex medical issues. Further recommendations to follow.
[2016-04-18] MEDS: LEVOFLOXACIN 750MG-D5W PMX 750 MG in DEXTROSE/WATER 1 150ML.BAG IVPB SCH (20:35)
[2016-04-18] MEDS: RALOXIFENE 60 MG TAB PO SCH (21:42)
[2016-04-19 07:24] LABS: Basophils % (A) 0 %; CH 30.1; CHCM 31.6; Eosinophils # (A) 0.2 k/uL (0-0.7); Eosinophils % (A) 3 %; HCT 28.8 % (34.0-46.0); HGB 9.1 gm/dL (11.4-16.0); Luc # (Auto) 0.22; Luc % (Auto) 4; Lymphocytes # (A) 1.5 k/uL (1.0-4.8); Lymphocytes % (A) 29 %; MCH 30.4 pg (25.0-35.0); MCHC 31.7 g/dL (31.0-37.0); MCV 95.9 fL (80.0-100.0); Mean Platelet Volume 9.3; Monocytes # (A) 0.3 k/uL (0-1.0); Monocytes % (A) 5 %; Neutrophils # (A) 3.1 k/uL (1.3-7.7); Neutrophils % (A) 58 %; RBC 3.01 m/uL (3.80-5.40); RDW 14.5 % (11.5-15.5); WBC 5.3 k/uL (3.8-10.6)
[2016-04-19 07:28] LABS: Calcium 9.2 mg/dL (8.4-10.2); Potassium 4.6 mmol/L (3.5-5.1)
[2016-04-19] MEDS: METOCLOPRAMIDE 10 MG TAB PO SCH ×2 (08:29→16:59)
[2016-04-19] MEDS: MONTELUKAST 10 MG TAB PO SCH (08:30)
[2016-04-19] MEDS: ATENOLOL 25 MG TAB PO SCH (08:30)
[2016-04-19] MEDS: PANTOPRAZOLE 40 MG TABLET PO SCH (08:30)
[2016-04-19] MEDS: BACLOFEN 10 MG TAB PO SCH ×3 (08:30→21:35)
[2016-04-19] MEDS: ENOXAPARIN 30 MG/0.3 ML SYRINGE SQ SCH (08:30)
[2016-04-19] MEDS: GABAPENTIN 300 MG CAP PO SCH ×3 (08:30→21:35)
[2016-04-19] MEDS: HYDROcodone/APAP 7.5-325MG 1 EACH TAB PO SCH ×3 (08:32→21:35)
[2016-04-19] MEDS: IPRATROPIUM-ALBUTEROL 3 ML NEB INHALATION SCH ×4 (09:18→19:36)
[2016-04-19] MEDS: ASCORBIC ACID 500 MG TAB PO SCH (12:02)
[2016-04-19] MEDS: MULTIVITAMINS, THERA 1 EACH TAB PO SCH (12:03)
[2016-04-19] MEDS: CHOLECALCIFEROL 1,000 UNIT TAB PO SCH (12:03)
[2016-04-19] MEDS: SODIUM CHLORIDE 0.9% 1,000 ML IV SCH (16:59)
[2016-04-19] MEDS: RALOXIFENE 60 MG TAB PO SCH (21:35)
[2016-04-19 21:43] VITALS: RESP 16
[2016-04-20] MEDS: BACLOFEN 10 MG TAB PO SCH (07:38)
[2016-04-20] MEDS: ENOXAPARIN 30 MG/0.3 ML SYRINGE SQ SCH (07:38)
[2016-04-20] MEDS: ATENOLOL 25 MG TAB PO SCH (07:38)
[2016-04-20] MEDS: PANTOPRAZOLE 40 MG TABLET PO SCH (07:38)
[2016-04-20] MEDS: GABAPENTIN 300 MG CAP PO SCH (07:39)
[2016-04-20] MEDS: MONTELUKAST 10 MG TAB PO SCH (07:39)
[2016-04-20] MEDS: HYDROcodone/APAP 7.5-325MG 1 EACH TAB PO SCH (07:39)
[2016-04-20] MEDS: METOCLOPRAMIDE 10 MG TAB PO SCH (07:40)
--- NOTE | 2016-04-20 07:52 | PN ---
This 85 -year-old woman was admitted with right upper lobe pneumonia with possible sepsis, present on admission is being closely monitored. No chest pain or palpitation. No fever. Possible ECF rehab is being planned at this time. On exam, alert and oriented x3. Pulse is 72, blood pressure is 177/79, respiratory rate 16, temperature 98 degrees. Pulse ox 93% on room air. HEENT: Conjunctivae normal. NECK: No jugular venous distention. CARDIOVASCULAR: S1, S2 muffled. RESPIRATORY: Breath sounds diminished at the bases. Scattered rhonchi and crackles. ABDOMEN: Soft, nontender. Legs: No edema. No swelling. CENTRAL NERVOUS SYSTEM: No focal deficits. LABS: Creatinine 1.22. ASSESSMENT: 1. Right upper lobe pneumonia with possible sepsis, present on admission. 2. Escherichia coli urinary tract infection. 3. Right upper lobe mass lesion suspicious right base infiltrate. 4. Numerous thoracic compression fracture without any changes in the recent CAT scan. 5. Cardiomegaly. 6. Atherosclerotic vascular disease per CAT scan. 7. Change in mental status, metabolic encephalopathy with sepsis, present on admission. 8. Chronic obstructive pulmonary disease, acute exacerbation present on admission. 9. Mild acute on chronic renal failure, present on admission. 10. Chronic renal failure stage III, possibly secondary to dehydration, improving. 11. Anemia, normocytic, anemia of chronic disease. 12. Gastroesophageal reflux disease. 13. History of degenerative joint disease. 14. Gait dysfunction. 15. History of pneumonia. 16. History of peripheral neuropathy. 17. Hiatal hernia. 18. History of frequent urinary tract infections. 19. History of multiple lung nodules, possible pneumonia, possible malignancy. 20. Chronic hypoxic respiratory failure, on home oxygen as well as nasal cannula. 21. Right wrist contusion possible fracture, stable. 22. FULL CODE. RECOMMENDATIONS AND DISCUSSION: In this 85 -year-old woman who presented with multiple complex medical issues, we will monitor the patient closely. Continue the current medications. Symptomatic treatment , PT/OT evaluation, possibly ECF rehab, continue the rest of the medications, continue antibiotics. prognosis guarded. Further recommendations to follow. MTDD
[2016-04-20 07:56] VITALS: BP 147/67; TEMP 98
[2016-04-20 08:27] LABS: Calcium 8.9 mg/dL (8.4-10.2); Potassium 4.7 mmol/L (3.5-5.1)
[2016-04-20 08:30] LABS: Aty Lym Flag Slight; CH 30.2; CHCM 31.4; HCT 26.2 % (34.0-46.0); HGB 8.4 gm/dL (11.4-16.0); MCH 30.9 pg (25.0-35.0); MCHC 31.9 g/dL (31.0-37.0); MCV 96.8 fL (80.0-100.0); Mean Platelet Volume 9.4; RBC 2.71 m/uL (3.80-5.40); RDW 14.6 % (11.5-15.5); WBC 4.7 k/uL (3.8-10.6); WBC (Perox) 4.78
[2016-04-20] MEDS: IPRATROPIUM-ALBUTEROL 3 ML NEB INHALATION SCH ×2 (08:40→12:35)
[2016-04-20 09:51] LABS: Add Differential Manual Differential
[2016-04-20 09:55] LABS: Manual Review Performed; Nucleated Red Blood Cells 0 /100 WBC (0-0); Total Cells Counted 100
[2016-04-20] MEDS: MULTIVITAMINS, THERA 1 EACH TAB PO SCH (11:12)
[2016-04-20] MEDS: ASCORBIC ACID 500 MG TAB PO SCH (11:12)
[2016-04-20] MEDS: CHOLECALCIFEROL 1,000 UNIT TAB PO SCH (11:12)
--- NOTE | 2016-04-20 12:15 | DS ---
DATE OF ADMISSION: 04/15/2016 DATE OF DISCHARGE: FINAL DIAGNOSES: 1. Right upper lobe pneumonia with possible sepsis, present on admission, improved. 2. Escherichia coli urinary tact infection, present on admission. 3. Right upper lobe mass lesion suspected with right basilar infiltrate. 4. Numerous thoracic compression fractures without any changes in the recent CAT scan. 5. Cardiomegaly. 6. Atherosclerotic vascular disease on CAT scan. 7. Change in mental status and metabolic encephalopathy with sepsis, present on admission. 8. Chronic obstructive pulmonary disease acute exacerbation present on admission. 9. Mild acute on chronic renal failure, present on admission. 10. Chronic renal failure stage III, possibly secondary to dehydration, improving. 11. Anemia, normocytic anemia of chronic disease. 12. Gastroesophageal reflux disease. 13. History of degenerative joint disease. 14. Gait dysfunction. 15. History of pneumonia. 16. History of peripheral neuropathy. 17. History of hiatal hernia. 18. History of frequent urinary tract infections. 19. History of multiple lung nodules, possible pneumonia, possible malignancy. 20. Chronic hypoxic respiratory failure, on home oxygen as well as nasal cannula. 21. Right wrist contusion, possible fracture, stable. 22. FULL CODE. DISCHARGE DISPOSITION: The patient will be discharged in a stable condition with guarded prognosis. Patient will be transferred to [facility]. Total time taken 35 minutes. HISTORY OF PRESENT ILLNESS: This 85-year-old woman with a past medical history of multiple medical problems, admitted with right upper lobe pneumonia as well as E. coli UTI. Patient treated with bronchodilators and antibiotics. Patient improved significantly. On exam, vitals are stable. CARDIOVASCULAR SYSTEM: S1, S2, muffled. ABDOMEN: Soft. NERVOUS SYSTEM: No focal deficits. WBC is 4.7, hemoglobin is 8.4. Creatinine stable at 1.32. So the patient will discharge in a stable condition with guarded prognosis. 1. Diet is cardiac. 2. Activity limited until followup. 3. Follow up with Dr. Orozco after discharge from [facility]. 4. Follow up with Dr. Baires and Dr. Srinivasan as advised from Orthopedic Surgery for the right wrist. Otherwise medications are: 1. Ventolin HFA 1 to 2 puffs q.6 p.r.n. 2. Vitamin C 500 mg p.o. daily. 3. Atenolol 25 mg daily. 4. Lioresal 10 mg p.o. t.i.d. 5. Vitamin D3 one thousand daily. 6. Flonase spray one spray daily p.r.n. 7. Neurontin 300 mg p.o. t.i.d. 8. [place] 7.5 t.i.d. p.r.n. 9. Albuterol Atrovent updrafts q.i.d. and p.r.n. 10. Levaquin 750 q. 0.48 hours for 5 more doses. 11. Reglan 10 mg a.c. b.i.d. 12. Singulair 10 mg p.o. daily. 13. Multivitamin 1 p.o. daily. 14. Prilosec 20 mg daily. 15. Evista 60 mg p.o. q.h.s. Once again, the patient will be discharged in a stable condition with guarded prognosis.
[2016-04-20 12:49] VITALS: PULSE 84
[2016-04-20] MEDS ORDERED: LEVOFLOXACIN 750 MG TAB PO SCH (21:00)
== END 2016-04-20 16:38 | DRG 871 ==
LOC: EC 10:48 → 4MS4W 13:00 → 5MS5E 14:47
PROVIDERS: ADMIT Hospitalist; ATTEND Hospitalist
DX: A41.9 Sepsis, unspecified organism (principal); G93.41 Metabolic encephalopathy; J18.9 Pneumonia, unspecified organism; N17.9 Acute kidney failure, unspecified; J44.0 Chronic obstructive pulmonary disease with (acute) lower respiratory infection; M48.54XA Collapsed vertebra, not elsewhere classified, thoracic region, initial encounter for fracture; J96.11 Chronic respiratory failure with hypoxia; G62.9 Polyneuropathy, unspecified; N39.0 Urinary tract infection, site not specified; J44.1 Chronic obstructive pulmonary disease with (acute) exacerbation; E86.0 Dehydration; D63.8 Anemia in other chronic diseases classified elsewhere; I25.10 Atherosclerotic heart disease of native coronary artery without angina pectoris; B96.20 Unspecified Escherichia coli [E. coli] as the cause of diseases classified elsewhere; G25.81 Restless legs syndrome; G89.29 Other chronic pain; I51.7 Cardiomegaly; K21.9 Gastro-esophageal reflux disease without esophagitis; K44.9 Diaphragmatic hernia without obstruction or gangrene; M19.90 Unspecified osteoarthritis, unspecified site; M81.0 Age-related osteoporosis without current pathological fracture; N18.3 Chronic kidney disease, stage 3 (moderate); R65.20 Severe sepsis without septic shock; S60.211A Contusion of right wrist, initial encounter; M25.531 Pain in right wrist; R26.9 Unspecified abnormalities of gait and mobility; R32 Unspecified urinary incontinence; M54.89 Other dorsalgia; M25.511 Pain in right shoulder; H91.90 Unspecified hearing loss, unspecified ear; H54.2 Low vision, both eyes; Z85.3 Personal history of malignant neoplasm of breast; Z87.01 Personal history of pneumonia (recurrent); Z87.440 Personal history of urinary (tract) infections; Z87.891 Personal history of nicotine dependence; Z99.81 Dependence on supplemental oxygen; Z79.899 Other long term (current) drug therapy; Z96.641 Presence of right artificial hip joint; Z82.49 Family history of ischemic heart disease and other diseases of the circulatory system; W19.XXXA Unspecified fall, initial encounter; Y92.002 Bathroom of unspecified non-institutional (private) residence as the place of occurrence of the external cause
CPT/HCPCS: 36415; 71020; 71250; 72170; 73502; 80048; 80053; 81001; 82550; 82553; 83735; 84100; 84443; 84484; 85025; 85610; 85730; 87040; 87077; 87086; 87186; 87502; 93005; 94640; 94760; 96361; 96365; 99285

== ENCOUNTER 2017-04-16 12:59 | Inpatient (IN) | payer MEDICARE ==
[2017-04-16] MEDS ORDERED: MORPHINE SULFATE 4 MG/ML SYRINGE IV STA (13:56)
[2017-04-16] MEDS ORDERED: SODIUM CHLORIDE 0.9% 1,000 ML IV STA (13:56)
[2017-04-16] MEDS ORDERED: ONDANSETRON 4 MG/2 ML VIAL IVP STA (13:58)
[2017-04-16 14:14] LABS: Appearance,Urine Clear (Clear); Basophils % (A) 0 %; Bilirubin,Urine Negative (Negative); Blood,Urine Negative (Negative); Color,Urine Colorless; Eosinophils # (A) 0.1 k/uL (0-0.7); Eosinophils % (A) 1 %; Glucose,Urine (UA) Negative (Negative); HGB 11.3 gm/dL (11.4-16.0); Ketones,Urine Negative (Negative); Leukocyte Esterase,Urine Negative (Negative); Lymphocytes # (A) 1.6 k/uL (1.0-4.8); Lymphocytes % (A) 32 %; MCH 31.2 pg (25.0-35.0); MCHC 32.3 g/dL (31.0-37.0); MCV 96.6 fL (80.0-100.0); Mean Platelet Volume 9.6; Monocytes # (A) 0.2 k/uL (0-1.0); Monocytes % (A) 4 %; Neutrophils % (A) 59 %; Nitrite,Urine Negative (Negative); Platelet Count 133 k/uL (150-450); Protein,Urine Negative (Negative); RBC 3.62 m/uL (3.80-5.40); RDW 13.2 % (11.5-15.5); Specific Gravity,Urine 1.006 (1.001-1.035); Urobilinogen,Urine <2.0 mg/dL (<2.0); WBC 5.1 k/uL (3.8-10.6)
[2017-04-16 14:26] LABS: Albumin 4.3 g/dL (3.5-5.0); Calcium 10.3 mg/dL (8.4-10.2); Potassium 5.1 mmol/L (3.5-5.1); Total Bilirubin 0.5 mg/dL (0.2-1.3); Total Protein 7.4 g/dL (6.3-8.2)
[2017-04-16] MEDS ORDERED: MORPHINE SULFATE 4 MG/ML SYRINGE IVP ONE (14:30)
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
--- NOTE | 2017-04-16 14:45 | XR ---
EXAMINATION TYPE: XR lumbosacral spine min 4V DATE OF EXAM: 04/16/2017 COMPARISON: 02/01/2011 HISTORY: 86 year-old female abdominal and back pain TECHNIQUE: 5 views FINDINGS: Osteopenia. Dense atherosclerotic calcifications throughout the abdominal aorta and iliac arteries. The upper abdominal aorta appears aneurysmal at 3.3 cm. Stable anterior wedging with 50% anterior height loss of the T12 vertebral body. There is mild superior endplate deformity of L1 which appears new from prior. Overall vertebral body height is maintained. Minimal anterior wedging of L3 is unchanged. Endplate deformities of L4 and L5 appear unchanged. Endplate spondylosis throughout. Grade 1 retrolisthesis L1-L2 and grade 1 anterolisthesis at L2-L3 are unchanged. Baastrup's disease. Advanced hypertrophic facet arthropathy throughout. IMPRESSION: 1. Osteoporosis limiting detailed assessment of the osseous structures. 2. Multilevel mild vertebral compression deformities, with approximately 50% anterior height loss at T12 which is largely unchanged. Mild superior endplate deformity of L1 is increased from 2010. This i s age indeterminate and can be correlated with focal pain at this level. 3. Degenerative grade 1 spondylolistheses at L1-L2 and L2-L3. 4. 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 5. 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
--- NOTE | 2017-04-16 14:57 | XR ---
Abdomen HISTORY: Abdomen pain, back pain, history of urinary tract infection Frontal view of the abdomen on 2 images Correlated to prior exam AP pelvis 04/15/2016, abdomen 02/01/2011 Bilateral hip arthroplasties are again noted, heterotopic new bone formation present especially on th e right. Bone mineralization is reduced. There are vascular calcifications within the pelvis. No evid ent bowel obstruction or pneumoperitoneum. Degenerative disc changes are noted in the visualized spin e, compression deformities suspected at multiple levels. Vertebral plasty noted in the thoracic verte bral body. Surgical clips present in the right upper quadrant. Lung bases are clear. Prominent lung v olumes may be indicative of underlying COPD. IMPRESSION: Nonobstructive bowel gas pattern. Osteopenia, multilevel osteoporotic compression fractur es.
[2017-04-16] MEDS ORDERED: MORPHINE SULFATE 4 MG/ML SYRINGE IV PRN (15:37)
[2017-04-16] MEDS ORDERED: NALOXONE 0.4 MG/ML 1 ML VIAL IV PRN (15:37)
[2017-04-16] MEDS ORDERED: ALBUTEROL NEBULIZED 2.5 MG/3 ML INHALATION PRN (15:41)
[2017-04-16] MEDS: IPRATROPIUM-ALBUTEROL 3 ML NEB INHALATION SCH ×2 (16:11→20:41)
[2017-04-16] MEDS: BACLOFEN 10 MG TAB PO SCH ×3 (17:00→23:34)
[2017-04-16] MEDS: HYDROcodone/APAP 7.5-325MG 1 EACH TAB PO SCH ×2 (17:01→23:35)
[2017-04-16 17:50] VITALS: BMI 31.6
[2017-04-16] MEDS: GABAPENTIN 300 MG CAP PO SCH ×2 (18:32→23:34)
[2017-04-16] MEDS: PANTOPRAZOLE 40 MG TABLET PO SCH (18:32)
[2017-04-16] MEDS: METOCLOPRAMIDE 10 MG TAB PO SCH ×2 (18:33→23:34)
[2017-04-16] MEDS: SYMBICORT 160-4.5 MCG INHALER INHALATION SCH (20:42)
[2017-04-16] MEDS: ACETAMINOPHEN TAB 500 MG TAB PO SCH (20:46)
[2017-04-16] MEDS: diphenhydrAMINE 25 MG CAP PO SCH (20:46)
[2017-04-16] MEDS ORDERED: NON-FORMULARY DRUG (Acetaminophen/Diphenhydramine [Tylenol Pm 500-25mg] 1 TAB) PO SCH (21:00)
[2017-04-16] MEDS: RALOXIFENE 60 MG TAB PO SCH (22:27)
[2017-04-17] MEDS: SYMBICORT 160-4.5 MCG INHALER INHALATION SCH ×2 (07:11→19:00)
[2017-04-17] MEDS: IPRATROPIUM-ALBUTEROL 3 ML NEB INHALATION SCH ×4 (07:11→19:00)
[2017-04-17] MEDS: HYDROcodone/APAP 7.5-325MG 1 EACH TAB PO SCH ×3 (08:52→21:23)
[2017-04-17] MEDS: ATENOLOL 50 MG TAB PO SCH (08:55)
[2017-04-17] MEDS: FUROSEMIDE 20 MG TAB PO SCH (08:55)
[2017-04-17] MEDS: DOCUSATE 100 MG CAP PO SCH (08:55)
[2017-04-17] MEDS: MONTELUKAST 10 MG TAB PO SCH (08:55)
[2017-04-17] MEDS: METOCLOPRAMIDE 10 MG TAB PO SCH ×3 (08:55→21:22)
[2017-04-17] MEDS: GABAPENTIN 300 MG CAP PO SCH ×3 (08:55→21:22)
[2017-04-17] MEDS: ASPIRIN 81 MG PO SCH (08:55)
[2017-04-17] MEDS: PANTOPRAZOLE 40 MG TABLET PO SCH ×2 (08:55→18:15)
[2017-04-17] MEDS: BACLOFEN 10 MG TAB PO SCH ×3 (08:56→21:23)
[2017-04-17] MEDS ORDERED: NON-FORMULARY DRUG (Tiotropium Bromide [Spiriva] 1 CAP) INHALATION SCH (09:00)
[2017-04-17] MEDS: ASCORBIC ACID 500 MG TAB PO SCH (12:28)
[2017-04-17] MEDS: MULTIVITAMINS, THERA 1 EACH TAB PO SCH (12:28)
[2017-04-17] MEDS: CHOLECALCIFEROL 1,000 UNIT TAB PO SCH (12:28)
[2017-04-17] MEDS: CALCIUM CARBONATE 500 MG CHEWABLE PO SCH (12:28)
[2017-04-17] MEDS ORDERED: MORPHINE ORAL SOLN 10 MG/5 ML CUP PO PRN (14:35)
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
[2017-04-17] MEDS: ACETAMINOPHEN TAB 500 MG TAB PO SCH (21:21)
[2017-04-17] MEDS: RALOXIFENE 60 MG TAB PO SCH (21:22)
[2017-04-17] MEDS: diphenhydrAMINE 25 MG CAP PO SCH (21:23)
[2017-04-17] MEDS: HEPARIN SODIUM,PORCINE 5,000 UNIT/ML 1 ML VIAL SQ SCH (21:28)
[2017-04-18] MEDS: HYDROcodone/APAP 7.5-325MG 1 EACH TAB PO SCH ×5 (02:46→23:22)
[2017-04-18] MEDS ORDERED: FUROSEMIDE 10 MG/ML 4 ML VIAL IV STA (06:41)
[2017-04-18 06:45] LABS: Glucose,Whole Blood 110 mg/dL (75-99)
--- NOTE | 2017-04-18 06:58 | XR ---
EXAM: XR Chest, 1 View CLINICAL HISTORY: ITS.REASON XR Reason: shortness of breath TECHNIQUE: Frontal view of the chest. COMPARISON: Chest x-ray dated 04/16/2016. FINDINGS: Lungs: Reidentified 3.7 cm mass in the right midlung. Mild presumed atelectasis in the left lung base. Bilateral prominent perihilar and interstitial opacities suggestive of edema. Pleural space: Unremarkable. No pneumothorax. Heart: Mild cardiomegaly. Mediastinum: Unremarkable. Bones/joints: Moderate degenerative changes of both shoulder joints. Soft tissues: Unremarkable. Vasculature: Calcification of the aortic arch. IMPRESSION: Reidentified approximately 3.7 cm mass in the right midlung that is otherwise not well-characterized by x-ray. Accurate comparison with the prior x-rays difficult. Cardiomegaly and possible mild pulmonary congestion.
[2017-04-18 07:00] LABS: ABG Base Excess -9.4 mmol/L; ABG HCO3 17 mmol/L (21-25); ABG Oxygen Saturation 94.3 % (94-97); ABG PCO2 36 mmHg (35-45); ABG PH 7.29 (7.35-7.45); ABG PO2 78 mmHg (83-108); ABG TCO2 18 mmol/L (19-24)
[2017-04-18 07:06] LABS: Basophils % (A) 0 %; Eosinophils # (A) 0.1 k/uL (0-0.7); Eosinophils % (A) 2 %; HCT 35.4 % (34.0-46.0); Hypochromasia Slight; Lymphocytes # (A) 1.5 k/uL (1.0-4.8); Lymphocytes % (A) 33 %; MCH 30.9 pg (25.0-35.0); MCHC 31.1 g/dL (31.0-37.0); MCV 99.3 fL (80.0-100.0); Mean Platelet Volume 8.3; Monocytes # (A) 0.2 k/uL (0-1.0); Monocytes % (A) 4 %; Neutrophils # (A) 2.7 k/uL (1.3-7.7); Neutrophils % (A) 58 %; Platelet Count 129 k/uL (150-450); RBC 3.57 m/uL (3.80-5.40); RDW 13.2 % (11.5-15.5); WBC 4.7 k/uL (3.8-10.6)
[2017-04-18 07:19] LABS: Albumin 3.6 g/dL (3.5-5.0); Calcium 9.1 mg/dL (8.4-10.2); Magnesium 1.9 mg/dL (1.6-2.3); Phosphorus 3.5 mg/dL (2.5-4.5); Potassium 4.2 mmol/L (3.5-5.1); Total Bilirubin 0.3 mg/dL (0.2-1.3); Total Protein 6.4 g/dL (6.3-8.2)
[2017-04-18] MEDS: IPRATROPIUM-ALBUTEROL 3 ML NEB INHALATION SCH ×4 (07:29→19:12)
[2017-04-18] MEDS: SYMBICORT 160-4.5 MCG INHALER INHALATION SCH ×2 (07:30→19:12)
[2017-04-18] MEDS: ATENOLOL 50 MG TAB PO SCH (07:33)
[2017-04-18] MEDS: METOCLOPRAMIDE 10 MG TAB PO SCH ×3 (07:33→20:37)
[2017-04-18] MEDS: DOCUSATE 100 MG CAP PO SCH (07:33)
[2017-04-18] MEDS: PANTOPRAZOLE 40 MG TABLET PO SCH ×2 (07:33→16:42)
[2017-04-18] MEDS: ASPIRIN 81 MG PO SCH (07:33)
[2017-04-18] MEDS: MONTELUKAST 10 MG TAB PO SCH (07:33)
[2017-04-18] MEDS: GABAPENTIN 300 MG CAP PO SCH ×4 (07:33→23:22)
[2017-04-18] MEDS: FUROSEMIDE 20 MG TAB PO SCH (07:33)
[2017-04-18] MEDS: HEPARIN SODIUM,PORCINE 5,000 UNIT/ML 1 ML VIAL SQ SCH ×2 (07:36→22:25)
[2017-04-18] MEDS: BACLOFEN 10 MG TAB PO SCH ×4 (07:36→23:22)
[2017-04-18] MEDS ORDERED: RX INFO: IV CONTRAST WAS GIVEN 1 EACH MISC MISCELLANE PRN (09:28)
--- NOTE | 2017-04-18 11:00 | CT ---
EXAMINATION TYPE: CT angio chest DATE OF EXAM: 04/18/2017 10:24 AM COMPARISON: Previous study dated 04/15/2016. HISTORY: SOB, history of breast CA CT DLP: 388.3 mGycm Automated exposure control for dose reduction was used. CONTRAST: CTA scan of the thorax is performed with IV Contrast, patient injected with 61 mL of Visipaque 320, p ulmonary embolism protocol. . FINDINGS: Masslike density in the posterior segment of the right upper lobe previously measured 3.1 x 2.7 cm. Today it measures 3.6 x 2.5 cm. This abuts the major fissure on the right. There are underlying changes of COPD. There are small, bilateral effusions. There is no evidence of pulmonary embolus. The aorta is normal in caliber without evidence of dissect ion. The heart is mildly enlarged. Visualized portions of the upper abdomen are unremarkable. There is extensive osteopenia throughout the spine, likely on the basis of osteoporosis. There has be en a previous kyphoplasty in one of the lower dorsal vertebra. IMPRESSION: #1 THIS EXAMINATION IS NEGATIVE FOR PULMONARY EMBOLISM. 2. ENLARGING MASS IN THE POSTERIOR SEGMENT OF THE RIGHT UPPER LOBE. 3. EMPHYSEMATOUS CHANGE. 4. POSTSURGICAL CHANGE.
[2017-04-18] MEDS: CALCIUM CARBONATE 500 MG CHEWABLE PO SCH (13:48)
[2017-04-18] MEDS: MULTIVITAMINS, THERA 1 EACH TAB PO SCH (13:50)
[2017-04-18] MEDS: CHOLECALCIFEROL 1,000 UNIT TAB PO SCH (13:50)
[2017-04-18] MEDS: ASCORBIC ACID 500 MG TAB PO SCH (13:51)
[2017-04-18] MEDS: ACETAMINOPHEN TAB 500 MG TAB PO SCH (16:42)
[2017-04-18] MEDS: RALOXIFENE 60 MG TAB PO SCH (20:36)
[2017-04-18] MEDS: diphenhydrAMINE 25 MG CAP PO SCH (20:36)
[2017-04-18 21:59] LABS: Glucose,Whole Blood 110 mg/dL (75-99)
[2017-04-18] MEDS ORDERED: FUROSEMIDE 10 MG/ML 4 ML VIAL IV PRN (22:50)
--- NOTE | 2017-04-18 23:25 | P.PN ---
Subjective Progress Note Date: 04/17/17 Principal diagnosis: Acute back pain Patient is a 86-year-old female with a known history of lumbar spinal compression fractures, osteoarthritis of multiple joints, COPD and history of breast cancer on hormonal therapy, lung nodule being followed in the clinic came to ER with complaints of worsening back pain for the past few weeks. Pain got worse during last 1 week.. Mainly in the lower back pain radiates from the right lower back to the right leg. Denied any bladder or bowel dysfunction. She does have ongoing urinary incontinence. No numbness or tingling otherwise down the leg. No fever no chills no recent injury or fall as per the patient. He does take [place] 7.5 at home. Patient does have constipation as well and has not moved bowels for the past for 5 days. No fever no chills. No chest pain or short of breath. No nausea vomiting or diarrhea. Denied any recent illnesses. No recent travel or sick contacts. KUB x-ray showed nonobstructive bowel gas pattern. Osteoporosis with multiple level compression fractures. CT lumbar spine showed multilevel mid vertebral compression deformities compression deformities at T12 and L1. L1 endplate deformity increased in size compared to previous. BUN 52 creatinine 1.7 04/17/2017 Patient's back pain improved today. Patient is able to sit in a chair. PT OT was consulted and possible transfer to rehab. Otherwise no complaints of chest pain or shortness of breath. No nausea vomiting or abdominal pain. Patient did have bowel movement. No other acute overnight issues. All other review of systems negative except the above. current medications reviewed Objective - Vital Signs Vital signs: Vital Signs Temp 98.3 F 04/17/17 15:00 Pulse 84 04/17/17 19:11 Resp 16 04/17/17 16:06 BP 111/70 04/17/17 15:00 Pulse Ox 91 L 04/17/17 15:00 Intake & Output 04/17/17 04/17/17 04/18/17 06:59 18:59 06:59 Intake Total 1250 950 Balance 1250 950 Intake: Intake, IV Titration 1100 800 Amount Sodium Chloride 0.9% 1, 1100 800 000 ml @ 100 mls/hr IV . Q10H STA Rx#:[id number] Oral 150 150 Other: Voiding Method Bedpan Bedpan Diaper Diaper # Voids 1 2 - Exam Patient is lying in the bed comfortably, no distress, awake alert and oriented.. HEENT: Normocephalic. Neck is supple. Pupils reactive. Nostrils clear. Oral cavity is moist. Ears reveal no drainage. Neck reveals no JVD, carotid bruits, or thyromegaly. CHEST EXAMINATION: Trachea is central. Symmetrical expansion. Lung grigsby clear to auscultation and percussion. CARDIAC: Normal S1, S2 with no gallops. Positive systolic murmur ABDOMEN: Soft. Bowel sounds normal. No organomegaly. No abdominal bruits. Extremities: reveal no edema. No clubbing or cyanosis Neurologically awake, alert, oriented x3 with well-coordinated movements. No focal deficits noted Skin: No rash or skin lesions. Psychiatric: Cooperative. Nonsuicidal Musculoskeletal: No joint swelling or deformity. Normal range of motion. Patient does have tenderness over the T12 and L1 vertebra. - Labs CBC & Chem 7: 04/18/17 06:50 04/18/17 06:50 Assessment and Plan Assessment: Acute on chronic lower back pain due to compression fractures at T12 and L1 History of compression fracture Acute on chronic kidney disease stage III creatinine 1.7 Are sure that it is of multiple joints extended GERD COPD stable History of breast cancer currently on hormonal therapy and lump resection previously Lung nodule being followed as an outpatient DVT prophylaxis Plan: Patient will be continued on pain medications in the form of Morphine IV, [place] 7.5 and gabapentin. Continue the home medications and follow closely. Gentle hydration. Encourage ambulation. We'll consult PTOT. Possible subacute rehab transfer upon discharge.
--- NOTE | 2017-04-18 23:29 | P.PN ---
Subjective Progress Note Date: 04/18/17 Principal diagnosis: Acute back pain Patient is a 86-year-old female with a known history of lumbar spinal compression fractures, osteoarthritis of multiple joints, COPD and history of breast cancer on hormonal therapy, lung nodule being followed in the clinic came to ER with complaints of worsening back pain for the past few weeks. Pain got worse during last 1 week.. Mainly in the lower back pain radiates from the right lower back to the right leg. Denied any bladder or bowel dysfunction. She does have ongoing urinary incontinence. No numbness or tingling otherwise down the leg. No fever no chills no recent injury or fall as per the patient. He does take [place] 7.5 at home. Patient does have constipation as well and has not moved bowels for the past for 5 days. No fever no chills. No chest pain or short of breath. No nausea vomiting or diarrhea. Denied any recent illnesses. No recent travel or sick contacts. KUB x-ray showed nonobstructive bowel gas pattern. Osteoporosis with multiple level compression fractures. CT lumbar spine showed multilevel mid vertebral compression deformities compression deformities at T12 and L1. L1 endplate deformity increased in size compared to previous. BUN 52 creatinine 1.7 04/17/2017 Patient's back pain improved today. Patient is able to sit in a chair. PT OT was consulted and possible transfer to rehab. Otherwise no complaints of chest pain or shortness of breath. No nausea vomiting or abdominal pain. Patient did have bowel movement. No other acute overnight issues. 04/18/2017 Patient did have acute respiratory distress this morning and was placed on BiPAP briefly. Patient was given a dose of IV Lasix. Currently patient is on nasal cannula. Chest x-ray showed mild pulmonary vascular congestion and 3.7 cm right mid lung mass is redemonstrated. Patient was found to have elevated d-dimer and CT angiogram is negative for any PE. Patient is also having altered mental status in the morning which has been improved now and is at baseline. Active Medications Generic Name Dose Route Start Last Admin Trade Name Freq PRN Reason Stop Dose Admin Acetaminophen 500 mg 04/16/17 21:00 04/18/17 16:42 Tylenol Tab PO 500 mg HS REBEKA Administration Hydrocodone Bitart/Acetaminophen 1 each 04/16/17 16:00 04/18/17 23:22 Floyd 7.5-325 PO 0.5 each TID REBEKA Administration Albuterol Sulfate 2.5 mg 04/16/17 15:41 Ventolin Nebulized INHALATION RT-Q6H PRN Shortness Of Breath Albuterol/Ipratropium 3 ml 04/16/17 16:00 04/18/17 19:12 Duoneb 0.5 Mg-3 Mg/3 Ml Soln INHALATION 3 ml RT-QID REBEKA Administration Ascorbic Acid 500 mg 04/17/17 12:00 04/18/17 13:51 Vitamin C PO 500 mg 1200 REBEKA Administration Aspirin 81 mg 04/17/17 09:00 04/18/17 07:33 Aspirin PO 81 mg DAILY REBEKA Administration Atenolol 50 mg 04/17/17 09:00 04/18/17 07:33 Tenormin PO 50 mg DAILY REBEKA Administration Baclofen 10 mg 04/16/17 16:00 04/18/17 23:22 Lioresal PO 10 mg TID [facility] Administration Budesonide/Formoterol Fumarate 2 puff 04/16/17 20:00 04/18/17 19:12 Symbicort 160-4.5 Mcg Inhaler INHALATION 2 puff RT-BID [facility] Administration Calcium Carbonate/Glycine 500 mg 04/17/17 12:00 04/18/17 13:48 Tums PO 500 mg 1200 [facility] Administration Cholecalciferol 1,000 unit 04/17/17 12:00 04/18/17 13:50 Vitamin D3 PO 1,000 unit 1200 [facility] Administration Diphenhydramine HCl 25 mg 04/16/17 21:00 04/18/17 20:36 Benadryl PO Not Given [facility] Docusate Sodium 100 mg 04/17/17 09:00 04/18/17 07:33 Colace PO 100 mg DAILY [facility] Administration Furosemide 20 mg 04/17/17 09:00 04/18/17 07:33 Lasix PO 20 mg DAILY [facility] Administration Gabapentin 300 mg 04/16/17 16:00 04/18/17 23:22 Neurontin PO 300 mg TID [facility] Administration Heparin Sodium (Porcine) 5,000 unit 04/17/17 21:00 04/18/17 22:25 Heparin SQ 5,000 unit Q12HR [facility] Administration Insulin Aspart 0 unit 04/19/17 07:30 Novolog SQ ACHS [facility] Protocol Methylprednisolone Sodium Succinate 40 mg 04/19/17 00:00 Solu-Medrol IV Q6HR REBEKA Metoclopramide HCl 10 mg 04/16/17 16:00 04/18/17 20:37 Reglan PO Not Given TID REBEKA Miscellaneous Information 1 each 04/18/17 09:28 Rx Info: Iv Contrast Was Given MISCELLANE 04/20/17 09:29 DAILY PRN Per Protocol Montelukast Sodium 10 mg 04/17/17 09:00 04/18/17 07:33 Singulair PO 10 mg DAILY REBEKA Administration Morphine Sulfate 12 mg 04/17/17 14:35 Morphine Oral Chari 2mg/Ml PO Q4HR PRN Severe Pain Multivitamins 1 each 04/17/17 12:00 04/18/17 13:50 Theragran PO 1 each 1200 REBEKA Administration Naloxone HCl 0.2 mg 04/16/17 15:37 Narcan IV Q2M PRN Opioid Reversal Pantoprazole Sodium 40 mg 04/16/17 17:30 04/18/17 16:42 Protonix PO 40 mg AC-BID REBEKA Administration Raloxifene HCl 60 mg 04/16/17 21:00 04/18/17 20:36 Evista PO Not Given HS REBEKA All other review of systems negative except the above. current medications reviewed Objective - Vital Signs Vital signs: Vital Signs Temp 98.1 F 04/18/17 15:00 Pulse 88 04/18/17 19:24 Resp 18 04/18/17 16:00 BP 151/67 04/18/17 15:00 Pulse Ox 97 04/18/17 15:00 Intake & Output 04/18/17 04/18/17 04/19/17 06:59 18:59 06:59 Intake Total 380 150 Balance 380 150 Weight 81 kg Intake: Oral 380 150 Other: Voiding Method Bedpan Bedpan Diaper Diaper # Voids 3 3 - Exam Patient is lying in the bed comfortably, no distress, awake alert and oriented.. HEENT: Normocephalic. Neck is supple. Pupils reactive. Nostrils clear. Oral cavity is moist. Ears reveal no drainage. Neck reveals no JVD, carotid bruits, or thyromegaly. CHEST EXAMINATION: Trachea is central. Symmetrical expansion. Lung grigsby clear to auscultation and percussion. Minimal crackles at right base CARDIAC: Normal S1, S2 with no gallops. Positive systolic murmur ABDOMEN: Soft. Bowel sounds normal. No organomegaly. No abdominal bruits. Extremities: reveal no edema. No clubbing or cyanosis Neurologically awake, alert, oriented x3 with well-coordinated movements. No focal deficits noted Skin: No rash or skin lesions. Psychiatric: Cooperative. Nonsuicidal Musculoskeletal: No joint swelling or deformity. Normal range of motion. Patient does have tenderness over the T12 and L1 vertebra. - Labs CBC & Chem 7: 04/18/17 06:50 04/18/17 06:50 Labs: Abnormal Lab Results - Last 24 Hours (Table) 04/18/17 04/18/17 04/18/17 Range/Units 06:33 06:50 06:50 RBC 3.57 L (3.80-5.40) m/uL Hgb 11.0 L (11.4-16.0) gm/dL Plt Count 129 L (150-450) k/uL D-Dimer (<0.60) mg/L FEU ABG pH (7.35-7.45) ABG pO2 (83-108) mmHg ABG HCO3 (21-25) mmol/L ABG Total CO2 (19-24) mmol/L Sodium 146 H (137-145) mmol/L Chloride 117 H (98-107) mmol/L Carbon Dioxide 16 L (22-30) mmol/L BUN 36 H (7-17) mg/dL Creatinine 1.34 H (0.52-1.04) mg/dL Glucose 115 H (74-99) mg/dL POC Glucose (mg/dL) 110 H (75-99) mg/dL 04/18/17 04/18/17 Range/Units 06:50 06:51 RBC (3.80-5.40) m/uL Hgb (11.4-16.0) gm/dL Plt Count (150-450) k/uL D-Dimer 2.07 H (<0.60) mg/L FEU ABG pH 7.29 L (7.35-7.45) ABG pO2 78 L (83-108) mmHg ABG HCO3 17 L (21-25) mmol/L ABG Total CO2 18 L (19-24) mmol/L Sodium (137-145) mmol/L Chloride (98-107) mmol/L Carbon Dioxide (22-30) mmol/L BUN (7-17) mg/dL Creatinine (0.52-1.04) mg/dL Glucose (74-99) mg/dL POC Glucose (mg/dL) (75-99) mg/dL Assessment and Plan Assessment: Acute on chronic lower back pain due to compression fractures at T12 and L1 Acute hypoxic respiratory failure likely due to vascular congestion and pain medication use. Status post BiPAP. Currently on nasal cannula History of compression fracture Acute on chronic kidney disease stage III creatinine 1.7 Are sure that it is of multiple joints extended GERD COPD stable History of breast cancer currently on hormonal therapy and lump resection previously Lung nodule being followed as an outpatient DVT prophylaxis Plan: Patient will be continued on pain medications in the form of Morphine IV, [place] 7.5 and gabapentin. Continue the home medications and follow closely. Gentle hydration. Encourage ambulation. We'll consult PTOT. Possible subacute rehab transfer upon discharge. Time with Patient: Greater than 30
[2017-04-18] MEDS: methylPREDNISolone SOD SUCCI 40 MG/ML 1 ML VIAL IV SCH (23:30)
[2017-04-19 05:19] LABS: Appearance,Urine Cloudy (Clear); Bilirubin,Urine Negative (Negative); Blood,Urine Negative (Negative); Color,Urine Yellow; Glucose,Urine (UA) Negative (Negative); Ketones,Urine 1+ (Negative); Leukocyte Esterase,Urine Large (Negative); Mucus,Urine Rare /hpf; Nitrite,Urine Negative (Negative); Protein,Urine 1+ (Negative); RBC,Urine 11 /hpf (0-5); Specific Gravity,Urine 1.021 (1.001-1.035); Squamous Epithelial Cell,Urine 1 /hpf (0-4); Urobilinogen,Urine <2.0 mg/dL (<2.0); WBC,Urine 36 /hpf (0-5)
[2017-04-19] MEDS: methylPREDNISolone SOD SUCCI 40 MG/ML 1 ML VIAL IV SCH ×4 (05:37→23:40)
[2017-04-19 07:10] LABS: Glucose,Whole Blood 125 mg/dL (75-99)
[2017-04-19 07:47] LABS: Albumin 3.8 g/dL (3.5-5.0); Calcium 9.4 mg/dL (8.4-10.2); Total Bilirubin 0.6 mg/dL (0.2-1.3); Total Protein 6.8 g/dL (6.3-8.2)
[2017-04-19 08:00] LABS: Potassium 4.8 mmol/L (3.5-5.1)
[2017-04-19] MEDS: IPRATROPIUM-ALBUTEROL 3 ML NEB INHALATION SCH ×4 (08:07→20:01)
[2017-04-19] MEDS: SYMBICORT 160-4.5 MCG INHALER INHALATION SCH ×2 (08:07→20:07)
[2017-04-19] MEDS: INSULIN ASPART 100 UNIT/ML 1 ML 10 ML VIAL SQ SCH ×4 (08:40→21:40)
[2017-04-19] MEDS: BACLOFEN 10 MG TAB PO SCH ×3 (09:01→21:40)
[2017-04-19] MEDS: FUROSEMIDE 20 MG TAB PO SCH (09:01)
[2017-04-19] MEDS: PANTOPRAZOLE 40 MG TABLET PO SCH ×2 (09:02→17:46)
[2017-04-19] MEDS: ASPIRIN 81 MG PO SCH (09:02)
[2017-04-19] MEDS: DOCUSATE 100 MG CAP PO SCH (09:02)
[2017-04-19] MEDS: ATENOLOL 50 MG TAB PO SCH (09:02)
[2017-04-19] MEDS: METOCLOPRAMIDE 10 MG TAB PO SCH ×3 (09:03→21:40)
[2017-04-19] MEDS: HEPARIN SODIUM,PORCINE 5,000 UNIT/ML 1 ML VIAL SQ SCH ×2 (09:03→21:55)
[2017-04-19] MEDS: MONTELUKAST 10 MG TAB PO SCH (09:03)
[2017-04-19] MEDS: GABAPENTIN 300 MG CAP PO SCH ×3 (09:03→21:40)
[2017-04-19] MEDS: HYDROcodone/APAP 7.5-325MG 1 EACH TAB PO SCH ×3 (10:29→21:40)
[2017-04-19] MEDS ORDERED: IOHEXOL 350 MG/ML 25 ML BOTTLE (ORAL USE) PO PRN (11:09)
[2017-04-19 11:31] LABS: Basophils % (A) 1 %; Eosinophils % (A) 1 %; HCT 38.9 % (34.0-46.0); HGB 11.9 gm/dL (11.4-16.0); Hypochromasia Marked; Lymphocytes # (A) 0.5 k/uL (1.0-4.8); Lymphocytes % (A) 14 %; MCH 31.4 pg (25.0-35.0); MCHC 30.6 g/dL (31.0-37.0); MCV 102.8 fL (80.0-100.0); Macrocytosis Slight; Mean Platelet Volume 10.2; Monocytes % (A) 1 %; Neutrophils # (A) 2.6 k/uL (1.3-7.7); Neutrophils % (A) 81 %; Platelet Count 128 k/uL (150-450); RBC 3.79 m/uL (3.80-5.40); RDW 13.2 % (11.5-15.5); WBC 3.2 k/uL (3.8-10.6)
[2017-04-19] MEDS: cefTRIAXone IN SWFI 1,000 MG/10 ML SYRINGE IVP SCH (11:51)
[2017-04-19 11:58] LABS: Glucose,Whole Blood 114 mg/dL (75-99)
[2017-04-19] MEDS: HYDROmorphone 0.5 MG/0.5 ML SYRINGE IVP PRN ×3 (12:08→21:31)
[2017-04-19] MEDS: CALCIUM CARBONATE 500 MG CHEWABLE PO SCH (12:28)
[2017-04-19] MEDS: ASCORBIC ACID 500 MG TAB PO SCH (12:28)
[2017-04-19] MEDS: MULTIVITAMINS, THERA 1 EACH TAB PO SCH (12:28)
[2017-04-19] MEDS: CHOLECALCIFEROL 1,000 UNIT TAB PO SCH (12:28)
--- NOTE | 2017-04-19 13:42 | CT ---
EXAMINATION TYPE: CT abdomen pelvis wo con DATE OF EXAM: 04/19/2017 HISTORY: Severe back pain CT DLP: 1017.8 mGycm. Automated Exposure Control for Dose Reduction was Utilized. TECHNIQUE: CT scan of the abdomen and pelvis is performed without oral or IV contrast. COMPARISON: CTA aorta February 01, 2011. FINDINGS: Within the limitations of a non-contrast study, the following observations are made. LUNG BASES: Cardiomegaly is present. There is dependent atelectasis in both bases, right worse than l eft. There is 5 mm calcified nodule medial posterior left lung base redemonstrated axial image 13. LIVER/GB: Cholecystectomy clips are redemonstrated. PANCREAS: No significant abnormality is seen. SPLEEN: Single calcification anterior superior spleen axial image 9 is redemonstrated. ADRENALS: No significant abnormality is seen. KIDNEYS: There is mild perinephric fluid seen bilaterally, nonspecific finding BOWEL: There is new small size hiatal hernia. There are diverticula in the left and sigmoid colon. Th ere is no CT evidence for acute diverticulitis. There is no suspicious small or large bowel dilatatio n. Normal-appearing appendix is seen from base of cecum in the right lower quadrant. GENITAL ORGANS: There is poor visualization of uterus due to streak artifact from bilateral hip arthr oplasties. LYMPH NODES: No greater than 1cm abdominal or pelvic lymph nodes are appreciated. OSSEOUS STRUCTURES: Metallic hardware from bilateral hip arthroplasties causes streak artifact limiti ng evaluation of pelvic structures. Osseous structures are demineralized. There is redemonstration of multilevel mild to moderate compression type fracture deformities with relative sparing of T11 level throughout the thoracolumbar spine from T9 through L5 levels. No suspicious linear lucency is seen t o suggest acute fracture. There is multilevel facet arthropathy in the lumbar spine. There is multile sapna spurring in the thoracolumbar spine. OTHER: There is moderate to severe calcified atherosclerotic change of aorta extending into branch ve ssels. IMPRESSION: Demineralization with mild to moderate multilevel chronic compression fractures redemonst rated. No acute fracture is identified. No significant acute finding is seen to account for patient's symptoms.
[2017-04-19] MEDS: ONDANSETRON 4 MG/2 ML VIAL IVP PRN (15:38)
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
[2017-04-19] MEDS: SODIUM CHLORIDE 0.9% 1,000 ML IV SCH (16:57)
[2017-04-19 17:24] LABS: Glucose,Whole Blood 112 mg/dL (75-99)
[2017-04-19 20:51] LABS: Glucose,Whole Blood 118 mg/dL (75-99)
[2017-04-19] MEDS: ACETAMINOPHEN TAB 500 MG TAB PO SCH (21:39)
[2017-04-19] MEDS: diphenhydrAMINE 25 MG CAP PO SCH (21:39)
[2017-04-19] MEDS: RALOXIFENE 60 MG TAB PO SCH (21:40)
[2017-04-20] MEDS: SODIUM CHLORIDE 0.9% 1,000 ML IV SCH (00:16)
[2017-04-20] MEDS: HYDROmorphone 0.5 MG/0.5 ML SYRINGE IVP PRN ×2 (02:38→06:17)
--- NOTE | 2017-04-20 05:26 | PN ---
PROGRESS NOTE DATE OF SERVICE: 04/19/2017 This 86 -year-old woman was admitted with significant back pain and multilevel DJD. Patient also has right upper lobe lung cancer possibly with a nodule increasing in nature. Biopsy has not been done, but however the patient had significant pain and change in mental status also. Patient is being closely monitored. The patient also had episodes of acute respiratory failure possibly related to fluid overload. The patient is followed by Dr. Orozco in the outpatient setting. PAST MEDICAL HISTORY: History of COPD, history of GERD, DJD, history of pneumonia, history of osteoporosis, history of adenoidectomy. MEDICATIONS: Prior to admission home medications: 1. Colace 100 mg p.o. daily. 2. Spiriva 1 puff daily. 3. Tylenol p.m. one p.o. q.h.s. 4. Symbicort 160/4.5 two puffs b.i.d. 5. Vitamin C 500 daily. 6. Vitamin D. 7. Ventolin HFA 1-2 puffs q.6h p.r.n. 8. Prilosec 10 mg b.i.d. 9. Singular 10 mg daily. 10.Reglan 10 mg p.o. t.i.d. 11.Vitamin D 3000 daily. 12.Multivitamins one p.o. daily. 13.DuoNeb q.i.d. 14.[place] 7.5 t.i.d. 15.Neurontin 300 mg t.i.d. 16.Lasix 20 mg daily. 17.IV steroids 60 mg q.h.s. 18.Calcium 600 mg daily. 19.Lioresal 10 mg p.o. t.i.d. 20.Tenormin 50 mg p.o. 21.Ecotrin 81 mg p.o. daily. ALLERGIES: None. FAMILY HISTORY: History of myocardial infarction in the family. SOCIAL HISTORY: Previous history of smoking. No history of alcohol intake. REVIEW OF SYSTEMS: ENT: No diminished vision. No diminished hearing. CARDIOVASCULAR: No angina or palpitations. Respiratory: No cough. GI no nausea. no dysuria. No hematuria. Central nervous system: No numbness or weakness. MEDICATIONS: Current medications are reviewed. PHYSICAL EXAM: Patient is alert, oriented x1. Pulse 74, blood pressure 119/70, respiration 18, temperature 98.2, pulse ox 97% on room air. HEENT: Conjunctivae normal. Neck no jugular venous distention. Cardiovascular: S1, S2 muffled. Respiratory: Breath sounds diminished in the bases. A few scattered rhonchi and crackles. ABDOMEN: Soft, nontender. Central nervous system: No focal deficits. Legs no edema. Central nervous system: Diffusely weak. The patient unable to complete a full neurologic exam. LABS: WBC 3.2, hemoglobin is 11.9, sodium 143, potassium 4.2, creatinine 1.12. ASSESSMENT: 1. Acute on chronic back pain secondary to severe degenerative joint disease. 2. Possible right upper lobe nodular lesion, possible lung cancer. 3. Acute hypoxic respiratory failure secondary to fluid overload. 4. Urinary tract infection. 5. Acute on chronic kidney disease with chronic kidney disease stage 3. 6. Chronic obstructive pulmonary disease. 7. History of breast cancer. 8. History of change in mental status, acute metabolic encephalopathy, multifactorial. 9. NO CODE, NO CPR, NO VENT. RECOMMENDATIONS AND DISCUSSION: In this 86-year-old woman who presented with multiple complex medical issues, we will monitor the patient closely, continue the current medications, continue management and symptomatic treatment. Otherwise at this time I recommend pain medications. Home medications. DVT prophylaxis. Otherwise continue the current medications. Ensure oxygenation. I would also recommend pulmonary consultation. Other than that, repeat labs. Overall prognosis guarded because of multiple complex medical issues. Discussed with family at length. Understands and agrees. Further recommendations to follow. MMODL / IJN: [id number] /
[2017-04-20] MEDS: methylPREDNISolone SOD SUCCI 40 MG/ML 1 ML VIAL IV SCH ×4 (06:14→23:25)
[2017-04-20] MEDS: SYMBICORT 160-4.5 MCG INHALER INHALATION SCH ×2 (07:28→19:27)
[2017-04-20] MEDS: IPRATROPIUM-ALBUTEROL 3 ML NEB INHALATION SCH ×4 (07:29→19:27)
[2017-04-20 08:08] LABS: Calcium 9.4 mg/dL (8.4-10.2); Potassium 4.5 mmol/L (3.5-5.1)
[2017-04-20 08:17] LABS: Basophils % (A) 0 %; Eosinophils % (A) 1 %; HCT 37.3 % (34.0-46.0); HGB 11.5 gm/dL (11.4-16.0); Hypochromasia Slight; Lymphocytes # (A) 0.7 k/uL (1.0-4.8); Lymphocytes % (A) 19 %; MCH 30.8 pg (25.0-35.0); MCHC 30.7 g/dL (31.0-37.0); MCV 100.4 fL (80.0-100.0); Mean Platelet Volume 8.8; Monocytes # (A) 0.1 k/uL (0-1.0); Monocytes % (A) 3 %; Neutrophils # (A) 2.8 k/uL (1.3-7.7); Neutrophils % (A) 76 %; Platelet Count 130 k/uL (150-450); RBC 3.71 m/uL (3.80-5.40); WBC 3.7 k/uL (3.8-10.6)
[2017-04-20] MEDS: cefTRIAXone IN SWFI 1,000 MG/10 ML SYRINGE IVP SCH (08:34)
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
[2017-04-20] MEDS: HYDROcodone/APAP 7.5-325MG 1 EACH TAB PO SCH ×3 (09:44→21:12)
[2017-04-20] MEDS: METOCLOPRAMIDE 10 MG TAB PO SCH ×3 (09:45→21:12)
[2017-04-20] MEDS: GABAPENTIN 300 MG CAP PO SCH ×3 (09:45→21:11)
[2017-04-20] MEDS: ATENOLOL 50 MG TAB PO SCH (09:45)
[2017-04-20] MEDS: FUROSEMIDE 20 MG TAB PO SCH (09:45)
[2017-04-20] MEDS: HEPARIN SODIUM,PORCINE 5,000 UNIT/ML 1 ML VIAL SQ SCH ×2 (09:46→21:13)
[2017-04-20] MEDS: INSULIN ASPART 100 UNIT/ML 1 ML 10 ML VIAL SQ SCH ×4 (09:48→21:13)
[2017-04-20] MEDS: ASPIRIN 81 MG PO SCH (09:50)
[2017-04-20] MEDS: BACLOFEN 10 MG TAB PO SCH ×3 (09:50→21:11)
[2017-04-20] MEDS: PANTOPRAZOLE 40 MG TABLET PO SCH ×2 (09:51→16:46)
[2017-04-20] MEDS: MONTELUKAST 10 MG TAB PO SCH (09:51)
[2017-04-20] MEDS: DOCUSATE 100 MG CAP PO SCH (09:51)
[2017-04-20 11:58] LABS: Glucose,Whole Blood 123 mg/dL (75-99)
[2017-04-20] MEDS: CHOLECALCIFEROL 1,000 UNIT TAB PO SCH (12:20)
[2017-04-20] MEDS: ASCORBIC ACID 500 MG TAB PO SCH (12:20)
[2017-04-20] MEDS: CALCIUM CARBONATE 500 MG CHEWABLE PO SCH (12:20)
[2017-04-20] MEDS: MULTIVITAMINS, THERA 1 EACH TAB PO SCH (12:21)
[2017-04-20] MEDS: ONDANSETRON 4 MG/2 ML VIAL IVP PRN (12:32)
--- NOTE | 2017-04-20 12:46 | P.PN ---
Subjective Progress Note Date: 04/20/17 Principal diagnosis: Acute hypoxic rest or a failure related to hypoventilation related to narcotic pain medication use Tawana is 86-year-old white female patient of Dr. Webb, who presented to the emergency department on 04/16/2017 at 1259 with 3 week history of right lower back pain. Patient's daughter took the patient to Dr. Mcgee's office for her usual blood work for anemia and Procrit injections, the patient started having such severe back pains from her right hip radiating up her back and wrapping around on the right side of her torso, that she was screaming in distress and therefore presented for evaluation and treatment. She denies any fever, denies any chills. She denies any shortness of breath, chest congestion , chest pains or hemoptysis. Patient does have a history of urinary tract infections in the past and also has a history of chronic back pain related to lumbar spinal compression fractures. Positive for urinary incontinence. Her daughter states while inpatient she noticed her mother's urine smell and very foul and strong. Prior to presentation patient had a 3 day history of constipation. Patient was noted to be confused, with episodes of delirium. 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 Abdominal x-ray showed nonobstructive bowel gas pattern, osteopenia, multilevel osteoporotic compression fractures were noted. Chest x-ray from 04/18/2017 showed 3.7 cm mass in the right midlung, cardiomegaly and possible mild pulmonary congestion. D-dimer was elevated at 2.07, CTA chest was done and showed no evidence of pulmonary embolism. It also showed an enlarging mass in the posterior segment of the right upper lobe, emphysematous changes. The mass measured 3.6 x 2.5 cm and showed an increase in size compared to the previous exam from 04/15/2016 from 3.1 x 2.7 cm. patient was previously seen by Dr. Baires in regards to the right lung mass, and in view of patient's advanced age and multiple comorbidities, it was decided by the patient and her family that no aggressive workup or treatment would be done for this mass. Patient also has a history of left breast cancer, status post lumpectomy and radiation treatment in 1995, chronic kidney disease stage III, GERD, osteoarthritis. Patient was medicated with [place], Dilaudid, baclofen for her severe right lower back pain. Patient did require BiPAP support for an episode of depressed level of consciousness and confusion. She is currently off the BiPAP support, she is on 3 L per nasal cannula with O2 sat at 95%. Her daughter is at the bedside, provided most of the history. On 04/20/2017 patient is seen in follow-up. Today she is awake, alert, spanning appropriately. She developed nausea and vomiting related to Dilaudid. Has been receiving Zofran with some relief. The patient's family state they would like to manage the patient's pain with other alternatives and may be increasing her maintenance dose of [place], but would like to avoid Dilaudid-HP if they can. Her back pain is still 10 out of 10, patient requires significant assistance to even sit up in bed. Very limited range of motion related to the back pain. Lung sounds are diminished, no rhonchi or rales noted. No wheezes. She denies any acute dyspnea. He is on 3 L per nasal cannula, her O2 sat is 96%. She remains afebrile, vital signs are stable. Urine culture is positive for gram-negative bacilli. Patient is on Rocephin. Patient's family is meeting with [facility] hospice surgical sales representative today to discuss enrollment. The patient is awake alert, and is of sound mind. She states she wants to go home if it is possible in hospice care. The patient and the family agree that in view of her poor functional status, advanced age and multiple comorbidities, they do not want to proceed with extensive workup and treatment of the right lung mass. They are interested in more effective pain control for her back problems. Objective - Vital Signs Vital signs: Vital Signs Temp 97.9 F 04/20/17 07:00 Pulse 80 04/20/17 11:28 Resp 18 04/20/17 10:46 BP 190/82 04/20/17 07:00 Pulse Ox 96 04/20/17 07:00 Intake & Output 04/19/17 04/20/17 04/20/17 18:59 06:59 18:59 Intake Total 120 180 Balance 120 180 Intake: IV 180 Sodium Chloride 0.9% 1, 180 000 ml @ 20 mls/hr IV . Q24H [facility] Rx#:[id number] Oral 120 Other: Voiding Method Diaper Diaper Diaper Incontinent Incontinent # Voids 2 1 1 - Exam GENERAL EXAM: Awake, alert, pleasant 86-year-old white female, weak, appears to be in mild distress HEAD: Normocephalic/atraumatic. EYES: Normal reaction of pupils, equal size. Conjunctiva pink, sclera white. NOSE: Clear with pink turbinates. THROAT: No erythema or exudates. NECK: No masses, no JVD, no thyroid enlargement, no adenopathy. CHEST: No chest wall deformity. Symmetrical expansion. LUNGS: Equal air entry with no crackles, wheeze, rhonchi or dullness. Diminished lung sounds bilaterally CVS: Regular rate and rhythm, normal S1 and S2, 3/6 systolic murmur noted, no gallops, no rubs ABDOMEN: Soft, nontender. No hepatosplenomegaly, normal bowel sounds, no guarding or rigidity. EXTREMITIES: No clubbing, no edema, no cyanosis, 2+ pulses and upper and lower extremities. MUSCULOSKELETAL: Muscle strength and tone normal. SPINE: No scoliosis or deformity SKIN: No rashes CENTRAL NERVOUS SYSTEM: Alert and oriented -2. No focal deficits, tone is normal in all 4 extremities. PSYCHIATRIC: Alert and oriented -2. Appropriate affect. Intact judgment and insight. - Labs CBC & Chem 7: 04/20/17 07:25 04/20/17 07:25 Labs: Abnormal Lab Results - Last 24 Hours (Table) 04/19/17 04/19/17 04/20/17 Range/Units 17:08 20:50 07:25 WBC 3.7 L (3.8-10.6) k/uL RBC 3.71 L (3.80-5.40) m/uL MCV 100.4 H (80.0-100.0) fL MCHC 30.7 L (31.0-37.0) g/dL Plt Count 130 L (150-450) k/uL Lymphocytes # 0.7 L (1.0-4.8) k/uL Chloride (98-107) mmol/L Carbon Dioxide (22-30) mmol/L BUN (7-17) mg/dL Creatinine (0.52-1.04) mg/dL Glucose (74-99) mg/dL POC Glucose (mg/dL) 112 H 118 H (75-99) mg/dL 04/20/17 04/20/17 Range/Units 07:25 11:53 WBC (3.8-10.6) k/uL RBC (3.80-5.40) m/uL MCV (80.0-100.0) fL MCHC (31.0-37.0) g/dL Plt Count (150-450) k/uL Lymphocytes # (1.0-4.8) k/uL Chloride 113 H (98-107) mmol/L Carbon Dioxide 20 L (22-30) mmol/L BUN 44 H (7-17) mg/dL Creatinine 1.23 H (0.52-1.04) mg/dL Glucose 127 H (74-99) mg/dL POC Glucose (mg/dL) 123 H (75-99) mg/dL Microbiology - Last 24 Hours (Table) 04/19/17 04:15 Urine Culture - Preliminary Urine,Voided Gram Neg Bacilli Assessment and Plan Plan: Assessment: #1. Acute hypoxic respiratory failure related to hypoventilation related to narcotic pain medication use, improved, patient is currently on 3 L per nasal cannula with O2 sat 96%. #2. Severe right-sided lower back pain radiating to the right hip, the etiology of which is under investigation. It could be related to the patient's extensive spinal compression fractures or possibly related to the right lung mass with possible metastasis to the spine. #3. Acute urinary tract infection, urinalysis was positive for large amount of leukocyte esterase, RBCs, WBCs and mucus #4. Right upper lobe mass, with increase in size to 3.6 x 2.5 cm compared to the previous exam on 04/15/2016 when it was 3.1 x 2.7 cm. This was noted on the CTA chest from 04/18/2017. This is being followed on an outpatient basis by Dr. Pompa, but there has not been any biopsies done to date #5. History of spinal compression fractures and chronic back pain related to it #6. Anion gap metabolic acidosis possibly related to sepsis #7. COPD, appears to be stable for now #8. Chronic kidney disease stage III #9. History of left breast cancer, status post lumpectomy and radiation treatment in 1995, on hormonal therapy with Evista #10. Anemia of chronic disease, receives Procrit injections on outpatient basis #11. Elevated d-dimer, CT chest is negative for any evidence of pulmonary embolism Plan: Patient is more awake, alert today. She still remains in significant amount of pain from her back. She remains very limited in terms of activity tolerance, she has difficulty even sitting up in bed without being in significant amount of pain. She remains stable in terms of pulmonary status, denies any acute distress. Did not require BiPAP support last night, currently on 3 L per nasal cannula with O2 sat at 96%. Urine cultures positive for gram-negative bacilli, final cultures pending, patient is covered with Rocephin at this time. The patient and the family decided to enroll in hospice, trying to decide between [facility] and [facility]. Patient wishes to go home with hospice if possible. From pulmonary standpoint she remains stable, at this time we will sign off and follow with the patient on as-needed basis. Thank you for this consultation I performed a history & physical examination of the patient and discussed their management with my nurse practitioner, Hansa Vickers. I reviewed the nurse practitioner's note and agree with the documented findings and plan of care. Lung sounds are diminished. The findings and the impression was discussed with the patient. I attest to the documentation by the nurse practitioner. Time with Patient: Less than 30
[2017-04-20] MEDS: HYDROcodone/APAP 7.5-325MG 1 EACH TAB PO PRN ×2 (13:54→17:50)
[2017-04-20] MEDS ORDERED: HYDROmorphone 2 MG TAB PO PRN ×2 (16:35)
[2017-04-20 17:22] LABS: Glucose,Whole Blood 172 mg/dL (75-99)
--- NOTE | 2017-04-20 19:42 | PN ---
PROGRESS NOTE DATE OF SERVICE: 04/20/2017 This 86-year-old woman who was admitted with acute on chronic back pain also had an expanding right upper lobe nodular lesion also. The possibility of lung cancer is considered. The patient is slightly more alert today. The patient has acute hypoxic respiratory failure also. The possibility of hospice is recommended by Dr. Pastor. Dr. Galaviz from Orthopedics saw the patient today from orthopedics and spine surgery point of view. The patient was noted to have multiple fractures which are not thought to be acute in nature, per Dr. Galaviz. Symptomatic treatment is provided. Past medical history reviewed. Review of systems could not be taken; the patient is confused. CURRENT MEDICATIONS: Current medications are noted and include: 1. Tylenol 500 mg p.r.n. 2. [place] 7.5 mg. 3. DuoNeb q.i.d. and p.r.n. 4. Tenormin. 5. Baclofen. 6. Symbicort b.i.d. 7. Rocephin. 8. Benadryl. 9. Lasix. 10.Neurontin. 11.Dilaudid. 12.NovoLog. 13.Solu-Medrol q.6. 14.P.r.n. medications. PHYSICAL EXAMINATION: Patient is alert oriented x1. Pulse 73, blood pressure 139/73, respiration 16, temperature 98 degrees, pulse ox 97% on 2 L. HEENT: Conjunctivae normal. Oral mucosa moist. NECK: No jugular venous distention. No carotid bruit. No lymph node enlargement. CARDIOVASCULAR SYSTEM: S1, S2 muffled. RESPIRATORY SYSTEM: Breath sounds diminished at the bases. A few scattered rhonchi and crackles. ABDOMEN: Soft, nontender. No mass palpable. LEGS: No edema. No swelling. NERVOUS SYSTEM: Higher functions as mentioned earlier. Moves all 4 limbs. No focal motor or sensory deficit. LYMPHATICS: No lymph node palpable in neck, axillae or groin. SKIN: No ulcer, rash, bleeding. LABS AT THIS TIME: WBC 3.7, hemoglobin 11.5, creatinine 1.23. ASSESSMENT: 1. Acute on chronic back pain secondary to severe degenerative joint disease. 2. Possible right upper lobe nodular lesion, possibly lung cancer. 3. Acute hypoxic respiratory failure secondary to fluid overload. 4. Urinary tract infection. 5. Change in mental status, acute metabolic encephalopathy, multifactorial. 6. Acute on chronic kidney disease with chronic kidney disease, stage III, on the background. 7. Chronic obstructive pulmonary disease history. 8. History of breast cancer. 9. NO CODE, NO CPR, NO VENT. RECOMMENDATIONS AND DISCUSSION: In this 86-year-old woman who presented with multiple complex medical issues, we will monitor the patient closely, continue the current medications, continue with symptomatic treatment. Otherwise at this time I recommend repeat labs. Guarded prognosis because of the multiple complex medical issues. The family is talking with Hospice, also; however, prognosis is guarded because of multiple complex medical issues.. Further recommendations to follow. MMODL / IJN: [id number] /
[2017-04-20 20:24] LABS: Glucose,Whole Blood 140 mg/dL (75-99)
[2017-04-20] MEDS: ACETAMINOPHEN TAB 500 MG TAB PO SCH (21:09)
[2017-04-20] MEDS: diphenhydrAMINE 25 MG CAP PO SCH (21:13)
[2017-04-20] MEDS: RALOXIFENE 60 MG TAB PO SCH (21:13)
[2017-04-21] MEDS: methylPREDNISolone SOD SUCCI 40 MG/ML 1 ML VIAL IV SCH ×2 (06:20→12:07)
[2017-04-21 07:24] LABS: Glucose,Whole Blood 127 mg/dL (75-99)
[2017-04-21] MEDS: SYMBICORT 160-4.5 MCG INHALER INHALATION SCH ×2 (07:31)
[2017-04-21] MEDS: IPRATROPIUM-ALBUTEROL 3 ML NEB INHALATION SCH ×3 (07:31→15:11)
[2017-04-21] MEDS: cefTRIAXone IN SWFI 1,000 MG/10 ML SYRINGE IVP SCH (07:51)
[2017-04-21 08:07] VITALS: BP 173/74; RESP 18; TEMP 98.3
[2017-04-21 09:09] LABS: Basophils % (A) 0 %; Eosinophils % (A) 0 %; HGB 11.1 gm/dL (11.4-16.0); Lymphocytes # (A) 0.8 k/uL (1.0-4.8); Lymphocytes % (A) 19 %; MCH 31.5 pg (25.0-35.0); MCHC 32.7 g/dL (31.0-37.0); MCV 96.3 fL (80.0-100.0); Mean Platelet Volume 8.6; Monocytes # (A) 0.1 k/uL (0-1.0); Monocytes % (A) 2 %; Neutrophils # (A) 3.1 k/uL (1.3-7.7); Neutrophils % (A) 77 %; Platelet Count 123 k/uL (150-450); RBC 3.53 m/uL (3.80-5.40)
[2017-04-21] MEDS: INSULIN ASPART 100 UNIT/ML 1 ML 10 ML VIAL SQ SCH ×2 (09:12→12:12)
[2017-04-21] MEDS: HEPARIN SODIUM,PORCINE 5,000 UNIT/ML 1 ML VIAL SQ SCH (09:19)
[2017-04-21] MEDS: METOCLOPRAMIDE 10 MG TAB PO SCH ×2 (09:19→16:20)
[2017-04-21] MEDS: MONTELUKAST 10 MG TAB PO SCH (09:19)
[2017-04-21] MEDS: FUROSEMIDE 20 MG TAB PO SCH (09:20)
[2017-04-21] MEDS: ATENOLOL 50 MG TAB PO SCH (09:20)
[2017-04-21] MEDS: PANTOPRAZOLE 40 MG TABLET PO SCH (09:20)
[2017-04-21] MEDS: DOCUSATE 100 MG CAP PO SCH (09:20)
[2017-04-21] MEDS: BACLOFEN 10 MG TAB PO SCH ×2 (09:20→16:20)
[2017-04-21] MEDS: GABAPENTIN 300 MG CAP PO SCH ×2 (09:20→16:20)
[2017-04-21] MEDS: ASPIRIN 81 MG PO SCH (09:20)
[2017-04-21 09:26] LABS: Calcium 9.3 mg/dL (8.4-10.2); Potassium 4.5 mmol/L (3.5-5.1)
[2017-04-21] MEDS: HYDROcodone/APAP 7.5-325MG 1 EACH TAB PO SCH ×2 (09:27→16:20)
[2017-04-21 11:08] LABS: Glucose,Whole Blood 152 mg/dL (75-99)
[2017-04-21] MEDS: ASCORBIC ACID 500 MG TAB PO SCH (12:11)
[2017-04-21] MEDS: CHOLECALCIFEROL 1,000 UNIT TAB PO SCH (12:12)
[2017-04-21] MEDS: MULTIVITAMINS, THERA 1 EACH TAB PO SCH (12:12)
[2017-04-21] MEDS: CALCIUM CARBONATE 500 MG CHEWABLE PO SCH (12:12)
--- NOTE | 2017-04-21 12:16 | P.PN ---
Subjective Progress Note Date: 04/21/17 Principal diagnosis: Acute hypoxic rest or a failure related to hypoventilation related to narcotic pain medication use Tawana is 86-year-old white female patient of Dr. Webb, who presented to the emergency department on 04/16/2017 at 1259 with 3 week history of right lower back pain. Patient's daughter took the patient to Dr. Mcgee's office for her usual blood work for anemia and Procrit injections, the patient started having such severe back pains from her right hip radiating up her back and wrapping around on the right side of her torso, that she was screaming in distress and therefore presented for evaluation and treatment. She denies any fever, denies any chills. She denies any shortness of breath, chest congestion , chest pains or hemoptysis. Patient does have a history of urinary tract infections in the past and also has a history of chronic back pain related to lumbar spinal compression fractures. Positive for urinary incontinence. Her daughter states while inpatient she noticed her mother's urine smell and very foul and strong. Prior to presentation patient had a 3 day history of constipation. Patient was noted to be confused, with episodes of delirium. 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 Abdominal x-ray showed nonobstructive bowel gas pattern, osteopenia, multilevel osteoporotic compression fractures were noted. Chest x-ray from 04/18/2017 showed 3.7 cm mass in the right midlung, cardiomegaly and possible mild pulmonary congestion. D-dimer was elevated at 2.07, CTA chest was done and showed no evidence of pulmonary embolism. It also showed an enlarging mass in the posterior segment of the right upper lobe, emphysematous changes. The mass measured 3.6 x 2.5 cm and showed an increase in size compared to the previous exam from 04/15/2016 from 3.1 x 2.7 cm. patient was previously seen by Dr. Baires in regards to the right lung mass, and in view of patient's advanced age and multiple comorbidities, it was decided by the patient and her family that no aggressive workup or treatment would be done for this mass. Patient also has a history of left breast cancer, status post lumpectomy and radiation treatment in 1995, chronic kidney disease stage III, GERD, osteoarthritis. Patient was medicated with Colwell, Dilaudid, baclofen for her severe right lower back pain. Patient did require BiPAP support for an episode of depressed level of consciousness and confusion. She is currently off the BiPAP support, she is on 3 L per nasal cannula with O2 sat at 95%. Her daughter is at the bedside, provided most of the history. On 04/20/2017 patient is seen in follow-up. Today she is awake, alert, spanning appropriately. She developed nausea and vomiting related to Dilaudid. Has been receiving Zofran with some relief. The patient's family state they would like to manage the patient's pain with other alternatives and may be increasing her maintenance dose of Colwell, but would like to avoid Dilaudid-HP if they can. Her back pain is still 10 out of 10, patient requires significant assistance to even sit up in bed. Very limited range of motion related to the back pain. Lung sounds are diminished, no rhonchi or rales noted. No wheezes. She denies any acute dyspnea. He is on 3 L per nasal cannula, her O2 sat is 96%. She remains afebrile, vital signs are stable. Urine culture is positive for gram-negative bacilli. Patient is on Rocephin. Patient's family is meeting with [facility] hospice international sales representative today to discuss enrollment. The patient is awake alert, and is of sound mind. She states she wants to go home if it is possible in hospice care. The patient and the family agree that in view of her poor functional status, advanced age and multiple comorbidities, they do not want to proceed with extensive workup and treatment of the right lung mass. They are interested in more effective pain control for her back problems. On 04/21/2017 patient seen again in follow-up. Denies any acute distress, her lung sounds are positive for some scattered rhonchi over anterior upper lobes, mostly upper airways. She remains on 3 L per nasal cannula with O2 sat at 95%. She is afebrile, vital signs are stable. She is a bit more lethargic today than yesterday, however she is arousable to verbal stimuli. Yesterday she was seen by orthopedic surgery, who recommended medical treatment for patient's back pain. The patient has made a decision to go home with hospice, she had her family met with the hospice international sales representative yesterday, and arrangements are being made for transfer patient to her daughter's home with hospice care today. Objective - Vital Signs Vital signs: Vital Signs Temp 98.3 F 04/21/17 07:00 Pulse 107 H 04/21/17 09:48 Resp 18 04/21/17 09:48 BP 173/74 04/21/17 07:00 Pulse Ox 95 04/21/17 07:00 Intake & Output 04/20/17 04/21/17 04/21/17 18:59 06:59 18:59 Intake Total 140 230 Balance 140 230 Weight 81 kg Intake: IV 140 230 Sodium Chloride 0.9% 1, 140 230 000 ml @ 20 mls/hr IV . Q24H [facility] Rx#:[id number] Other: Voiding Method Diaper Diaper Diaper # Voids 1 4 - Exam GENERAL EXAM: Awake, alert, pleasant 86-year-old white female, weak, appears to be in mild distress HEAD: Normocephalic/atraumatic. EYES: Normal reaction of pupils, equal size. Conjunctiva pink, sclera white. NOSE: Clear with pink turbinates. THROAT: No erythema or exudates. NECK: No masses, no JVD, no thyroid enlargement, no adenopathy. CHEST: No chest wall deformity. Symmetrical expansion. LUNGS: Equal air entry with no crackles, wheeze, there are a few scattered rhonchi over upper anterior bilateral lobes. Diminished lung sounds bilaterally CVS: Regular rate and rhythm, normal S1 and S2, 3/6 systolic murmur noted, no gallops, no rubs ABDOMEN: Soft, nontender. No hepatosplenomegaly, normal bowel sounds, no guarding or rigidity. EXTREMITIES: No clubbing, no edema, no cyanosis, 2+ pulses and upper and lower extremities. MUSCULOSKELETAL: Muscle strength and tone normal. SPINE: No scoliosis or deformity SKIN: No rashes CENTRAL NERVOUS SYSTEM: Alert and oriented -2. No focal deficits, tone is normal in all 4 extremities. PSYCHIATRIC: Alert and oriented -2. Appropriate affect. Intact judgment and insight. - Labs CBC & Chem 7: 04/21/17 08:30 04/21/17 08:30 Labs: Abnormal Lab Results - Last 24 Hours (Table) 04/20/17 04/20/17 04/21/17 Range/Units 17:20 20:18 07:22 RBC (3.80-5.40) m/uL Hgb (11.4-16.0) gm/dL Plt Count (150-450) k/uL Lymphocytes # (1.0-4.8) k/uL Chloride (98-107) mmol/L BUN (7-17) mg/dL Creatinine (0.52-1.04) mg/dL Glucose (74-99) mg/dL POC Glucose (mg/dL) 172 H 140 H 127 H (75-99) mg/dL 04/21/17 04/21/17 04/21/17 Range/Units 08:30 08:30 11:05 RBC 3.53 L (3.80-5.40) m/uL Hgb 11.1 L (11.4-16.0) gm/dL Plt Count 123 L (150-450) k/uL Lymphocytes # 0.8 L (1.0-4.8) k/uL Chloride 109 H (98-107) mmol/L BUN 59 H (7-17) mg/dL Creatinine 1.40 H (0.52-1.04) mg/dL Glucose 121 H (74-99) mg/dL POC Glucose (mg/dL) 152 H (75-99) mg/dL Microbiology - Last 24 Hours (Table) 04/19/17 04:15 Urine Culture - Final Urine,Voided Escherichia coli Assessment and Plan Plan: Assessment: #1. Acute hypoxic respiratory failure related to hypoventilation related to narcotic pain medication use, improved, patient is currently on 3 L per nasal cannula with O2 sat 96%. #2. Severe right-sided lower back pain radiating to the right hip, the etiology of which is under investigation. It could be related to the patient's extensive spinal compression fractures or possibly related to the right lung mass with possible metastasis to the spine. #3. Acute urinary tract infection, urinalysis was positive for large amount of leukocyte esterase, RBCs, WBCs and mucus #4. Right upper lobe mass, with increase in size to 3.6 x 2.5 cm compared to the previous exam on 04/15/2016 when it was 3.1 x 2.7 cm. This was noted on the CTA chest from 04/18/2017. This is being followed on an outpatient basis by Dr. Pompa, but there has not been any biopsies done to date #5. History of spinal compression fractures and chronic back pain related to it #6. Anion gap metabolic acidosis possibly related to sepsis #7. COPD, appears to be stable for now #8. Chronic kidney disease stage III #9. History of left breast cancer, status post lumpectomy and radiation treatment in 1995, on hormonal therapy with Evista #10. Anemia of chronic disease, receives Procrit injections on outpatient basis #11. Elevated d-dimer, CT chest is negative for any evidence of pulmonary embolism Plan: Pt. remains stable in terms of pulmonary status, denies any acute distress. Currently on 3 L per nasal cannula with O2 sat at 96%. Urine cultures positive for E. coli, with sensitivity to Rocephin. The patient has decided to go home to her daughter's house with hospice care today, arrangements are being made for equipment, hospital bed, home oxygen for transfer today. This is reasonable given the patient's multiple comorbidities, poor functional status, poor prognosis given the likelihood of malignancy in the right lung, and advanced age. I performed a history & physical examination of the patient and discussed their management with my nurse practitioner, Hansa Vickers. I reviewed the nurse practitioner's note and agree with the documented findings and plan of care. Lung sounds are diminished. The findings and the impression was discussed with the patient. I attest to the documentation by the nurse practitioner. Time with Patient: Less than 30
[2017-04-21] MEDS: HYDROcodone/APAP 7.5-325MG 1 EACH TAB PO PRN (14:09)
[2017-04-21 15:58] VITALS: PULSE 88
[2017-04-21] MEDS: SODIUM CHLORIDE 0.9% 1,000 ML IV SCH (16:20)
--- NOTE | 2017-04-21 19:34 | DS ---
DISCHARGE SUMMARY FINAL DIAGNOSES: 1. Acute on chronic back pain secondary to severe degenerative joint disease. 2. Possible right upper lobe nodular lesion lung cancer. 3. Acute hypoxic respiratory failure secondary to fluid overload. 4. Urinary tract infection. 5. Change in mental status secondary to metabolic encephalopathy with multifactorial. 6. Acute on chronic kidney disease with chronic kidney stage 3 on the background. 7. chronic obstructive pulmonary disease history. 8. History of breast cancer. 9. NO CODE, NO CPR, NO INTUBATION, NO VENT. 10.Hospice and comfort measures. DISCHARGE DISPOSITION: The patient is being discharged in stable condition with guarded prognosis. Total time taken 35 minutes. HISTORY OF PRESENT ILLNESS: his 79-year-old woman with past medical history of multiple medical problems was admitted with acute on chronic back pain and possible advanced malignancy, acute hypoxic respiratory failure and multiple complex medical issues. The patient is being monitored closely. Case was discussed with Dr. Pastor closely and because of the advanced malignancy, multiple other medical issues, the family decided to go with hospice. On exam, vital signs are stable. Cardiovascular S1, S2. Respirations: A few rhonchi. Abdomen is soft, nontender. The patient is being discharged in stable condition with guarded prognosis. DISCHARGE ADVICE AND MEDICATIONS: 1. Diet is cardiac. 2. Activity limited until followup as tolerated. 3. Follow up with Dr. Webb p.r.n. 4. Follow up with Orthopedics as recommended. MEDICATIONS: 1. diphenhydramine 1 tab p.o. q.h.s. 2. Ventolin 1-2 q.6h p.r.n. 3. Tenormin 50 mg p.o. daily. 4. Symbicort 160/4.5 two puffs b.i.d. 5. Lasix 20 mg p.o. 6. Neurontin 300 mg p.o. t.i.d. 7. [place] 7.5 t.i.d. prn. 8. Albuterol and Atrovent updrafts q.i.d. and p.r.n. 9. Reglan 10 mg t.i.d. 10.Plavix 75 mg p.o. daily. 11.Spiriva 1 puff daily. Once again, the patient is being discharged in stable with guarded prognosis. MMODL / IJN: [id number] / [facility]
== END 2017-04-21 16:50 | disposition hospice, home (50) | DRG 542 ==
LOC: EC 12:59 → OBSVTOIN 15:37 → 5MS5E 15:37
PROVIDERS: ADMIT Hospitalist; ATTEND Hospitalist
DX: M80.08XA Age-related osteoporosis with current pathological fracture, vertebra(e), initial encounter for fracture (principal); J96.01 Acute respiratory failure with hypoxia; N17.9 Acute kidney failure, unspecified; G93.41 Metabolic encephalopathy; E87.2 Acidosis; N39.0 Urinary tract infection, site not specified; G62.9 Polyneuropathy, unspecified; J44.9 Chronic obstructive pulmonary disease, unspecified; E87.70 Fluid overload, unspecified; D63.8 Anemia in other chronic diseases classified elsewhere; N18.3 Chronic kidney disease, stage 3 (moderate); Z51.5 Encounter for palliative care; Z66 Do not resuscitate; M43.16 Spondylolisthesis, lumbar region; G89.29 Other chronic pain; M46.96 Unspecified inflammatory spondylopathy, lumbar region; G25.81 Restless legs syndrome; K21.9 Gastro-esophageal reflux disease without esophagitis; K59.00 Constipation, unspecified; T40.605A Adverse effect of unspecified narcotics, initial encounter; R32 Unspecified urinary incontinence; K44.9 Diaphragmatic hernia without obstruction or gangrene; R79.1 Abnormal coagulation profile; R91.1 Solitary pulmonary nodule; Z79.891 Long term (current) use of opiate analgesic; Z79.810 Long term (current) use of selective estrogen receptor modulators (SERMs); Z79.51 Long term (current) use of inhaled steroids; Z79.899 Other long term (current) drug therapy; Z85.3 Personal history of malignant neoplasm of breast; Z92.3 Personal history of irradiation; Z87.891 Personal history of nicotine dependence; Z90.49 Acquired absence of other specified parts of digestive tract; Z87.01 Personal history of pneumonia (recurrent); Z96.643 Presence of artificial hip joint, bilateral; Z87.440 Personal history of urinary (tract) infections; Z82.62 Family history of osteoporosis
CPT/HCPCS: 36415; 36600; 71045; 71275; 72110; 74018; 74176; 80048; 80053; 81001; 81003; 82805; 83036; 83605; 83690; 83735; 84100; 85025; 85379; 87077; 87086; 87186; 94640; 94660; 94760; 96361; 96374; 96375; 96376; 99285